=== PATIENT | female | born 1960 | race Asian ===

== ENCOUNTER → 2016-08-02 | Outpatient (CLI) | payer OTHER ==
[~2016-08-02] MED LIST: ALL300 PO; ALLO300T80 PO; ASCO1CAP3 PO; BENZ100C7 PO; CHLOTAB3 PO; CHN/1 PO; CHOL2000 PO; CLBCRM30 EXT; CLON1TAB3 PO; DENO60SO INJ; DOXE10CA PO; FAMO1TAB71 PO; FLAX1CAP11 PO; FURO-85 PO; LEVA45AE INH; LEVO-14 PO; LEVO-371 PO; MELATAB2 PO; MELO15TA10 PO; MENT4GEL EXT; MENT4GEL TD; META1TAB22 PO; MGCS/ OR; MISCCAP80 PO; MONT1TAB3 PO; NASONEX NAE; NRV/5 PO; OMEG10007 PO; OMEP40CA PO; ONDA4TAB46 PO; OPTIRAY 320 IV PRN; OXYC-57 PO; PRLSR20 PO; SILO8CAP PO; SYMIN/8045 INH; ULT50 PO; VALA1TAB31 PO; XOPENEX INH; ZOLP10TA PO
--- NOTE | 2016-08-02 16:02 | DIAGNOSTIC IMAGING REPORT ---
CHEST CT WITH CONTRAST CT DOSE: HISTORY: Breast carcinoma C49.A4 TECHNIQUE: Multiaxial CT images of the chest were performed following the intravenous administration of contrast. COMPARISON: None. FINDINGS: The lungs are clear. The mediastinal vascular structures are within normal limits. No mediastinal or hilar lymphadenopathy. No pleural effusion or pneumothorax. Limited views of the upper abdomen demonstrate a normal liver and spleen. IMPRESSION: No significant abnormality identified within the chest. Electronically signed by: Beni Hubbard M.D. 08/02/2016 4:01 PM Dictated Date/Time: 08/02/2016 3:58 PM
--- NOTE | 2016-08-02 16:07 | DIAGNOSTIC IMAGING REPORT ---
CT SCAN OF THE ABDOMEN AND PELVIS WITH IV CONTRAST CLINICAL HISTORY: Breast cancer. COMPARISON STUDY: Abdominal CT dated 07/07/2015. TECHNIQUE: Following the IV administration of 93 cc of Optiray 320, CT scan of the abdomen and pelvis is performed from the lung bases to the proximal femora. Images are reviewed in the axial, sagittal, and coronal planes. IV contrast was administered without complication. Automated dose control exposure was utilized. CT DOSE: 572.91 mGy.cm FINDINGS: Lung bases: The heart is normal in size and without pericardial effusion. Emphysema is noted at the lung bases. There is bibasilar scarring versus atelectasis. No airspace consolidation or pleural effusion is identified. A small fat-containing Bochdalek hernia is identified at the right lung base. Liver: The contrast-enhanced liver is normal in size, contour, and attenuation. Focal fatty infiltration is seen adjacent to the falciform ligament. There is no intrahepatic biliary ductal dilatation. The hepatic veins and portal veins are patent. Gallbladder: Unremarkable. Spleen: Normal in size and attenuation. Pancreas: Unremarkable. Adrenal glands: Unremarkable. Kidneys: The contrast enhanced kidneys demonstrate mild cortical atrophy and are without hydronephrosis. The kidneys enhance symmetrically. Abdominal vasculature: The abdominal aorta is normal in course and caliber noting moderate atherosclerotic calcification. Bowel: Postoperative change is identified in the mid to distal stomach. The duodenum is normal in configuration. There is no bowel obstruction. There is mild to moderate colonic fecal retention. The appendix is not identified and reported surgically absent. Peritoneum: There is no intraperitoneal free air or abdominal ascites. Lymphadenopathy: None. Pelvic viscera: The bladder is normal as visualized. The uterus is surgically absent. No adnexal lesion is seen. There is a small fat-containing left inguinal hernia. Skeletal structures: The skeletal structures are osteopenic. There is mild to moderate lumbosacral spondylosis. A bone island is again seen in the right ischium. No lytic or blastic lesions are seen. IMPRESSION: 1. There is no evidence of metastatic disease in the abdomen or pelvis. 2. No acute infectious or inflammatory findings are identified. 3. Emphysema. Electronically signed by: Otilio Larsen M.D. 08/02/2016 4:05 PM Dictated Date/Time: 08/02/2016 3:58 PM
[2016-08-02 16:39] LABS: BASO % 0.2 %; BASO ABS # 0.03 K/uL (0-0.2); COMPLETE YES; EOS % 0.4 %; HEMATOCRIT 41.2 % (37-47); IG% 0.3 %; LYMPH % 20.4 %; LYMPH ABS # 2.63 K/uL (1.2-3.4); MEAN CELL VOLUME 94.5 fL (80-100); MEAN CORPUSCULAR HEMOGLOBIN 32.1 pg (25-34); MEAN PLATELET VOLUME 9.8 fL (7.4-10.4); MONO % 4.3 %; NEUT % 74.4 %; PLATELET COUNT 252 K/uL (130-400); RED BLOOD COUNT 4.36 M/uL (4.2-5.4); WHITE BLOOD COUNT 12.87 K/uL (4.8-10.8)
--- NOTE | 2016-08-02 16:47 | DIAGNOSTIC IMAGING REPORT ---
CERVICAL SPINE 8 VIEWS HISTORY: Pain. Neuropathy. M54.2 COMPARISON: None. FINDINGS: The cervical spine is visualized from C1 through the superior endplate of T1. There is no fracture. No subluxation. Disc spaces are preserved. Prevertebral soft tissues and the atlantodens interval are intact. IMPRESSION: No fracture or subluxation within the cervical spine. Electronically signed by: Beni Hubbard M.D. 08/02/2016 4:46 PM Dictated Date/Time: 08/02/2016 4:45 PM
[2016-08-02 16:56] LABS: ALT/SGPT 26 U/L (12-78); BLOOD UREA NITROGEN 23 mg/dl (7-18); BUN/CREATININE RATIO 25.3 (10-20); CALCIUM 8.5 mg/dl (8.5-10.1); CARBON DIOXIDE 25 mmol/L (21-32); CHLORIDE 102 mmol/L (98-107); CHOLESTEROL 290 mg/dl (0-200); CREATININE 0.89 mg/dl (0.60-1.20); GLUCOSE 95 mg/dl (70-99); POTASSIUM 3.7 mmol/L (3.5-5.1); SODIUM 138 mmol/L (136-145)
[2016-08-02 17:07] LABS: ALB/GLOB RATIO 1.1 (0.9-2); ALKALINE PHOSPHATASE 75 U/L (45-117); AST/SGOT 13 U/L (15-37); HDL CHOLESTEROL 73 mg/dl; LDL CHOLESTEROL CALCULATED 193 mg/dl; TRIGLYCERIDES 122 mg/dl (0-150); VERY LOW DENSITY LIPOPROT CALC 24 mg/dl
[2016-08-02 17:52] LABS: URINE APPEARANCE CLEAR (CLEAR); URINE BILIRUBIN NEG (NEG); URINE COLOR YELLOW; URINE EPITHELIAL CELL AUTO 0-5 /lpf (0-5); URINE NITRITE NEG (NEG); URINE PH 7.5 (4.5-7.5); URINE SPECIFIC GRAVITY 1.038 (1.000-1.030); UROBILINOGEN NEG (NEG)
[2016-08-02 17:53] LABS: MANUAL MICROSCOPIC REQUIRED? NO; REVIEW REQ? NO
[2016-08-06 18:38] LABS: PNEUMOCOCCAL IGG TYPE 1 13.6 mcg/mL; PNEUMOCOCCAL IGG TYPE 12(12F 3.1 mcg/mL; PNEUMOCOCCAL IGG TYPE 14 3.3 mcg/mL; PNEUMOCOCCAL IGG TYPE 19(19F 2.7 mcg/mL; PNEUMOCOCCAL IGG TYPE 23(23F 0.8 mcg/mL; PNEUMOCOCCAL IGG TYPE 26 (6B 1.6 mcg/mL; PNEUMOCOCCAL IGG TYPE 4 0.6 mcg/mL; PNEUMOCOCCAL IGG TYPE 5 4.6 mcg/mL; PNEUMOCOCCAL IGG TYPE 51 (7F 2.6 mcg/mL; PNEUMOCOCCAL IGG TYPE 56(18C 2.6 mcg/mL; PNEUMOCOCCAL IGG TYPE 8 >41.0 mcg/mL; PNEUMOCOCCAL IGG TYPE 9 (9N) 2.7 mcg/mL
[2016-08-07 10:36] LABS: NORMETANEPHRINE PLASMA 72 pg/mL (<=148); TOTAL METANEPHRINE PLASMA 72 pg/mL (<=205)
== END | disposition home or self-care (01) ==
LOC: C.CTS 14:45
PROVIDERS: ATTEND Internal Medicine Medical Oncology
DX: C49.A4 Gastrointestinal stromal tumor of large intestine (principal); Z85.3 Personal history of malignant neoplasm of breast; J43.9 Emphysema, unspecified

== ENCOUNTER 2016-08-08 17:53 | Emergency (ER) | payer OTHER ==
[~2016-08-08] VITALS: Ht 157.5 cm; Wt 62.0 kg
[~2016-08-08 17:53] MED LIST changes: -ALLO300T80 PO; -CHLOTAB3 PO; -CLBCRM30 EXT; -DOXE10CA PO; -LEVA45AE INH; -LEVO-371 PO; -MENT4GEL TD; -MGCS/ OR; -NRV/5 PO; -OMEG10007 PO; -OPTIRAY 320 IV PRN; -PRLSR20 PO; -ULT50 PO; -VALA1TAB31 PO
[2016-08-08 17:59] VITALS: TEMP 37.1; Ht 157.5 cm; Wt 62.0 kg
[2016-08-08] MEDS ORDERED: OXYCODONE HCL IR 5 MG TAB (IMMEDIATE RELEASE) PO STA (18:20)
[2016-08-08 19:57] LABS: BASO % 0.1 %; BASO ABS # 0.02 K/uL (0-0.2); COMPLETE YES; EOS % 0.2 %; HEMATOCRIT 42.3 % (37-47); IG% 0.3 %; LYMPH % 14.3 %; LYMPH ABS # 2.05 K/uL (1.2-3.4); MEAN CORPUSCULAR HEMOGLOBIN 33.1 pg (25-34); MEAN CORPUSCULAR HGB CONC 35.2 g/dl (32-36); MEAN PLATELET VOLUME 10.2 fL (7.4-10.4); MONO % 5.1 %; PLATELET COUNT 259 K/uL (130-400); WHITE BLOOD COUNT 14.36 K/uL (4.8-10.8)
[2016-08-08 20:08] LABS: PARTIAL THROMBOPLASTIN RATIO 0.9; PROTHROMBIN TIME (PATIENT) 10.5 SECONDS (9.0-12.0)
--- NOTE | 2016-08-08 20:19 | DIAGNOSTIC IMAGING REPORT ---
TWO VIEW CHEST CLINICAL HISTORY: Cough and fever. FINDINGS: PA and lateral chest radiographs are compared to study dated 12/04/2015 and correlated with chest CT dated 08/02/16. The cardiomediastinal silhouette is unremarkable. Emphysema and chronic interstitial thickening are similar to previous. No airspace consolidation or pleural effusion is seen. Linear atelectasis is present at the right lung base. There is no pneumothorax. The skeletal structures are osteopenic. The bony thorax appears intact. IMPRESSION: Emphysema with no active disease in the chest. Electronically signed by: Otilio Larsen M.D. 08/08/2016 8:18 PM Dictated Date/Time: 08/08/2016 8:16 PM
[2016-08-08 20:20] LABS: BUN/CREATININE RATIO 18.9 (10-20); CALCIUM 9.6 mg/dl (8.5-10.1); CREATININE 0.88 mg/dl (0.60-1.20); POTASSIUM 3.4 mmol/L (3.5-5.1)
[2016-08-08 20:27] LABS: URINE APPEARANCE CLEAR (CLEAR); URINE BILIRUBIN NEG (NEG); URINE COLOR YELLOW; URINE NITRITE NEG (NEG); URINE PH 7.5 (4.5-7.5); UROBILINOGEN NEG (NEG)
[2016-08-08 20:28] LABS: MANUAL MICROSCOPIC REQUIRED? NO; REVIEW REQ? NO
[2016-08-08] MEDS ORDERED: NRV/5 PO (21:17)
[2016-08-08] MEDS ORDERED: ULT50 PO (21:25)
[2016-08-08] MEDS ORDERED: GADAVIST IV PRN (22:15)
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
--- NOTE | 2016-08-08 23:00 | DIAGNOSTIC IMAGING REPORT ---
MR LUMBAR SPINE COMBO CLINICAL HISTORY: Fever. Chronic back pain. Clinical concern for epidural abscess. COMPARISON STUDY: MRI of lumbar spine dated 01/19/2016. TECHNIQUE: MRI of lumbar spine is performed using various T1 and T2-weighted sequences in the axial and sagittal planes. Contrast-enhanced sequences were acquired following the IV administration of 6 cc of Gadavist. FINDINGS: Lumbar spine: Vertebral body height and alignment are maintained throughout the lumbar spine. Chronic degenerative change with minimal marrow edema is seen at L4-L5. Normal marrow signal intensity is preserved throughout the remaining bony structures. The transverse and spinous processes are grossly intact. There is no evidence of spondylolysis. Intervertebral discs: There is degenerative disc desiccation and loss of height seen throughout the lumbar spine. There is trace fluid seen at the L4-L5 disc. Spinal cord and central canal: The visual spinal cord is normal in morphology and signal intensity. The conus medullaris terminates at the level of L1. No abnormal enhancement is identified on the postcontrast images. The nerve roots of the cauda equina are normal in morphology. There is no evidence of epidural fluid collection. L1-L2: Unremarkable. L2-L3: Unremarkable. L3-L4: Minimal facet arthropathy of no consequence. There is minimal disc bulge with annular fissure. The central canal and neural foramina are patent. L4-L5: There is small disc herniation with annular fissure. In conjunction with hypertrophy of the ligament and flavum this causes moderate acquired compromise the central canal. The minimum AP canal diameter measures 5.5 mm. There is bilateral subarticular stenosis with possible impingement on the exiting left L4 nerve root. This also abuts the transiting bilateral sacral nerve roots. L5-S1: There is minimal disc bulge with annular fissure. The central canal is widely patent. Facet arthropathy is of no confluence. The neural foramina are patent. Sacrum: Visualized sacrum is normal in morphology and signal intensity. Soft tissues: The paraspinous soft tissues are within normal limits. The retroperitoneal structures are grossly unremarkable but incompletely assessed. IMPRESSION: 1. There is no MRI evidence of epidural abscess as clinically queried. 2. There is a small disc herniation at L4-L5. This causes moderate acquired compromise of the central canal and likely impinges on the exiting left L4 and transiting bilateral sacral nerve roots. 3. There is fluid noted within the L4-L5 disc. This is likely on a degenerative basis and there is no associated paravertebral edema at this level. Discitis is considered unlikely but would be impossible to completely exclude by imaging. Clinical correlation will be essential. 4. There is no evidence of osteomyelitis. Minimal degenerative endplate edema is seen at L4-L5. No bony destruction is identified. 5. Mild degenerative change at additional levels as above. See discussion for detailed level by level analysis. Electronically signed by: Otilio Larsen M.D. 08/08/2016 10:58 PM Dictated Date/Time: 08/08/2016 10:11 PM
--- NOTE | 2016-08-08 23:21 | EMERGENCY ROOM VISIT NOTE ---
ED Visit Note First contact with patient: 23:02 The patient is a 56-year-old female who presented to the emergency department back pain. The patient was seen initially by Dr. Sosa. I received this patient at change of shift signout. The patient had laboratory and radiographic studies obtained. She also complained of fever. She also complained of upper respiratory symptoms including sore throat but her flu swab in her rapid strep screen were negative. The patient had an MRI ordered because of the fever and the results were pending. I discussed the patient's laboratory and radiographic studies with her at length including her MRI report MR LUMBAR SPINE COMBO CLINICAL HISTORY: Fever. Chronic back pain. Clinical concern for epidural abscess. COMPARISON STUDY: MRI of lumbar spine dated 01/19/2016. TECHNIQUE: MRI of lumbar spine is performed using various T1 and T2-weighted sequences in the axial and sagittal planes. Contrast-enhanced sequences were acquired following the IV administration of 6 cc of Gadavist. FINDINGS: Lumbar spine: Vertebral body height and alignment are maintained throughout the lumbar spine. Chronic degenerative change with minimal marrow edema is seen at L4-L5. Normal marrow signal intensity is preserved throughout the remaining bony structures. The transverse and spinous processes are grossly intact. There is no evidence of spondylolysis. Intervertebral discs: There is degenerative disc desiccation and loss of height seen throughout the lumbar spine. There is trace fluid seen at the L4-L5 disc. Spinal cord and central canal: The visual spinal cord is normal in morphology and signal intensity. The conus medullaris terminates at the level of L1. No abnormal enhancement is identified on the postcontrast images. The nerve roots of the cauda equina are normal in morphology. There is no evidence of epidural fluid collection. L1-L2: Unremarkable. L2-L3: Unremarkable. L3-L4: Minimal facet arthropathy of no consequence. There is minimal disc bulge with annular fissure. The central canal and neural foramina are patent. L4-L5: There is small disc herniation with annular fissure. In conjunction with hypertrophy of the ligament and flavum this causes moderate acquired compromise the central canal. The minimum AP canal diameter measures 5.5 mm. There is bilateral subarticular stenosis with possible impingement on the exiting left L4 nerve root. This also abuts the transiting bilateral sacral nerve roots. L5-S1: There is minimal disc bulge with annular fissure. The central canal is widely patent. Facet arthropathy is of no confluence. The neural foramina are patent. Sacrum: Visualized sacrum is normal in morphology and signal intensity. Soft tissues: The paraspinous soft tissues are within normal limits. The retroperitoneal structures are grossly unremarkable but incompletely assessed. IMPRESSION: 1. There is no MRI evidence of epidural abscess as clinically queried. 2. There is a small disc herniation at L4-L5. This causes moderate acquired compromise of the central canal and likely impinges on the exiting left L4 and transiting bilateral sacral nerve roots. 3. There is fluid noted within the L4-L5 disc. This is likely on a degenerative basis and there is no associated paravertebral edema at this level. Discitis is considered unlikely but would be impossible to completely exclude by imaging. Clinical correlation will be essential. 4. There is no evidence of osteomyelitis. Minimal degenerative endplate edema is seen at L4-L5. No bony destruction is identified. 5. Mild degenerative change at additional levels as above. See discussion for detailed level by level analysis. Electronically signed by: Otilio Larsen M.D. 08/08/2016 10:58 PM Dictated Date/Time: 08/08/2016 10:11 PM She already has a specialist who manages her back pain as well as a primary care physician. She was encouraged to rest and avoid any strenuous activity. She was encouraged to continue all medications as prescribed including her Percocet that she has at home. She was also encouraged to follow-up with her back specialist as well as her primary home care associate as soon as possible return to the emergency department immediately if symptoms change worsen or the need arises.
[2016-08-08 23:29] VITALS: BP 193/136; PULSE 87; O2SAT 98
== END 2016-08-08 23:30 | disposition home or self-care (01) ==
LOC: C.EDB 17:54 → C.EDC 23:30
DX: R50.9 Fever, unspecified (principal); M54.5 Low back pain; J45.909 Unspecified asthma, uncomplicated; Z85.3 Personal history of malignant neoplasm of breast; G89.29 Other chronic pain; K76.9 Liver disease, unspecified; F32.9 Major depressive disorder, single episode, unspecified; J43.9 Emphysema, unspecified; K21.9 Gastro-esophageal reflux disease without esophagitis; M79.7 Fibromyalgia; I10 Essential (primary) hypertension; M51.36 Other intervertebral disc degeneration, lumbar region; G47.33 Obstructive sleep apnea (adult) (pediatric); M81.0 Age-related osteoporosis without current pathological fracture; M48.06 Spinal stenosis, lumbar region; Z80.9 Family history of malignant neoplasm, unspecified; Z83.6 Family history of other diseases of the respiratory system; Z82.49 Family history of ischemic heart disease and other diseases of the circulatory system; F17.210 Nicotine dependence, cigarettes, uncomplicated; Z79.899 Other long term (current) drug therapy

== ENCOUNTER → 2016-12-05 | Outpatient (CLI) | payer OTHER ==
[~2016-12-05] MED LIST changes: +ALLO300T80 PO; +ATROPINE SULFATE 0.1 MG/ML 5ML SYR ONE; +CHLOTAB3 PO; +CLBCRM30 EXT; +DOBUTamine HCL 12.5 MG/ML 20 ML VIAL ONE; +DOXE10CA PO; +LEVA45AE INH; +LEVO5TAB2 PO; +MENT4GEL TD; +METOPROLOL TARTRATE 1 MG/ML VIAL ONE; +MGCS/ OR; +NRV/5 PO; +OMEG10007 PO; +PRLSR20 PO; +ULT50 PO; +VALA1TAB31 PO
--- NOTE | 2016-12-05 10:56 | DOBUTAMINE ECHO ---
*NOTICE TO RECEIVING CONSTITUTION PARTY AGENCY This information is strictly Confidential and protected under [place] law. [place] law prohibits you from making any further disclosure of this information unless further disclosure is expressly permitted by the written consent of the person to whom it pertains or is authorized by law. A general authorization for the release of medical or other information is not sufficient for this purpose. Hospital accepts no responsibility if the information is made available to any other person, INCLUDING THE PATIENT. Interpretation Summary * Name: JAMEE THAKUR Study Date: 12/05/2016 08:15 AM BP: 160/90 mmHg * Patient Location: [facility] HR: 71 * : 1960 (M/d/yyyy) Gender: Female Height: 62 in * Age: 56 yrs Ethnicity: Weight: 137 lb * Ordering Physician: Ryan Santana * Referring Physician: Ryan Santana * Performed By: Silvia Castro RDCS * * Reason For Study: ABNORMAL EKG * BSA: 1.6 m2 * -- Conclusions -- * There is mild concentric left ventricular hypertrophy. * Left ventricular systolic function is normal. * Diastolic dysfunction, Grade II (pseudonormalization pattern). * There is mild mitral regurgitation. * Right ventricular systolic pressure is normal. * Diagnostic dobutamine echocardiogram without EKG or echocardiographic evidence of inducible ischemia Procedure Details * DOBUTAMINE ECHO, CPT#62506 Left Ventricular Findings with Stress * Normal augmentation during dobutamine infusion. No development of wall motion abnormalities, but there was cavity obliteration at peak heart rate which may reduce the sensitivity of the study. Patient reported "pounding" and mild nausea at peak dobutamine infusion. Left Ventricle * The left ventricle is normal in size. * There is mild concentric left ventricular hypertrophy. * Ejection Fraction = 60-65%. * Left ventricular systolic function is normal. * Diastolic dysfunction, Grade II (pseudonormalization pattern). * The left ventricular wall motion is normal. Right Ventricle * The right ventricle is normal in size and function. Atria * The left atrial size is normal. * Right atrial size is normal. Mitral Valve * The mitral valve anatomy is normal. * There is mild mitral regurgitation. Tricuspid Valve * The tricuspid valve is not well visualized, but is grossly normal. * There is mild tricuspid regurgitation. * Right ventricular systolic pressure is normal. Aortic Valve * The aortic valve is normal in structure and function. * The aortic valve is trileaflet. * No hemodynamically significant valvular aortic stenosis. * There is no significant aortic regurgitation. Great Vessels * The aortic root is normal size. Pericardium * There is no pericardial effusion. Stress Parameters * Normal baseline electrocardiogram. * Stress ECG: No ST changes. No arrhythmias. * The stress portion of this study was personally supervised by the undersigned interpreting physician. * Rest heart rate was '71' BPM. * Rest blood pressure was '160/90' * Maximum heart rate achieved was 141 bpm. * Maximum heart rate was 87 % of maximum age-predicted heart rate. * Maximum blood pressure was '160/90' * Maximum Dobutamine infusion rate was '50' mcg/kg/min. * A total of .25 mg of intravenous Atropine was used to supplement Dobutamine for heart rate response. * Dobutamine infusion was terminated due to achieving target heart rate * A total of 2.5 mg of IV Metoprolol was administered to reverse Dobutamine-induced tachycardia. Left Ventricular Findings with Stress * Diagnostic dobutamine echocardiogram without EKG or echocardiographic evidence of inducible ischemia MMode 2D Measurements and Calculations IVSd 1.4 cm IVSs 1.7 cm LVIDd 3.9 cm LVIDs 2.5 cm LVPWd 1.3 cm LVPWs 1.9 cm IVS/LVPW 1.1 FS 34.7 % EDV(Teich) 65.7 ml ESV(Teich) 23.3 ml EF(Teich) 64.5 % EDV(cubed) 59.1 ml ESV(cubed) 16.5 ml EF(cubed) 72.1 % % IVS thick 19.3 % % LVPW thick 46.0 % LV mass(C)d 188.2 grams LV mass(C)dI 115.6 grams/m\\S\\2 LV mass(C)s 174.2 grams LV mass(C)sI 107.0 grams/m\\S\\2 CO(Teich) 3.0 l/min CI(Teich) 1.8 l/min/m\\S\\2 SV(Teich) 42.4 ml SI(Teich) 26.0 ml/m\\S\\2 CO(cubed) 3.0 l/min CI(cubed) 1.9 l/min/m\\S\\2 SV(cubed) 42.6 ml SI(cubed) 26.2 ml/m\\S\\2 Ao root diam 3.3 cm Ao root area 8.4 cm\\S\\2 LA dimension 3.5 cm LA/Ao 1.1 LVAd ap4 23.0 cm\\S\\2 LVLd ap4 7.7 cm EDV(MOD-sp4) 57.6 ml LVAs ap4 12.1 cm\\S\\2 LVLs ap4 6.2 cm ESV(MOD-sp4) 20.0 ml EF(MOD-sp4) 65.3 % LVAd ap2 20.9 cm\\S\\2 LVLd ap2 7.7 cm EDV(MOD-sp2) 47.1 ml LVAs ap2 10.4 cm\\S\\2 LVLs ap2 5.8 cm ESV(MOD-sp2) 16.1 ml EF(MOD-sp2) 65.8 % CO(MOD-sp4) 2.7 l/min CI(MOD-sp4) 1.6 l/min/m\\S\\2 SV(MOD-sp4) 37.6 ml SI(MOD-sp4) 23.1 ml/m\\S\\2 CO(MOD-sp2) 2.2 l/min CI(MOD-sp2) 1.4 l/min/m\\S\\2 SV(MOD-sp2) 31.0 ml SI(MOD-sp2) 19.0 ml/m\\S\\2 Doppler Measurements and Calculations MV E max ulysses 69.9 cm/sec MV A max ulysses 56.6 cm/sec MV E/A 1.2 MV dec time 0.24 sec Ao V2 max 124.9 cm/sec Ao max PG 6.2 mmHg Ao max PG (full) 1.1 mmHg LV V1 max PG 5.1 mmHg LV V1 max 113.1 cm/sec TR max ulysses 203.8 cm/sec
== END | disposition home or self-care (01) ==
LOC: C.CPL 08:03
PROVIDERS: ATTEND Family Medicine
DX: R94.31 Abnormal electrocardiogram [ECG] [EKG] (principal); Z01.818 Encounter for other preprocedural examination

== ENCOUNTER → 2016-12-09 | Outpatient (CLI) | payer OTHER ==
[~2016-12-09] MED LIST changes: -ATROPINE SULFATE 0.1 MG/ML 5ML SYR ONE; -DOBUTamine HCL 12.5 MG/ML 20 ML VIAL ONE; -METOPROLOL TARTRATE 1 MG/ML VIAL ONE
--- NOTE | 2016-12-09 13:09 | DIAGNOSTIC IMAGING REPORT ---
CHEST 2 VIEWS ROUTINE HISTORY: FEVER COMPARISON: Chest 08/08/2016. FINDINGS: Stable linear scarlike densities within the right lung base. No new focal lung consolidations to suggest pneumonia. No pleural effusions. No pneumothorax. The heart is stable in size. IMPRESSION: Stable linear scarlike densities within the right lung base. No new focal lung consolidations to suggest pneumonia. Electronically signed by: Maxx Silva M.D. 12/09/2016 1:07 PM Dictated Date/Time: 12/09/2016 1:05 PM
[2016-12-09 13:38] LABS: BASO % 0.1 %; BASO ABS # 0.02 K/uL (0-0.2); COMPLETE YES; HEMATOCRIT 43.6 % (37-47); IG% 0.4 %; LYMPH % 6.4 %; LYMPH ABS # 1.34 K/uL (1.2-3.4); MEAN CELL VOLUME 92.6 fL (80-100); MEAN CORPUSCULAR HEMOGLOBIN 31.4 pg (25-34); MEAN CORPUSCULAR HGB CONC 33.9 g/dl (32-36); MEAN PLATELET VOLUME 10.9 fL (7.4-10.4); NEUT % 90.1 %; PLATELET COUNT 216 K/uL (130-400); RED BLOOD COUNT 4.71 M/uL (4.2-5.4); WHITE BLOOD COUNT 20.98 K/uL (4.8-10.8)
[2016-12-09 15:12] LABS: URINE APPEARANCE CLEAR (CLEAR); URINE BILIRUBIN NEG (NEG); URINE COLOR YELLOW; URINE EPITHELIAL CELL AUTO >30 /lpf (0-5); URINE NITRITE NEG (NEG); URINE SPECIFIC GRAVITY 1.012 (1.000-1.030); UROBILINOGEN NEG (NEG)
[2016-12-09 15:23] LABS: MANUAL MICROSCOPIC REQUIRED? NO; REVIEW REQ? NO
[2016-12-09 17:35] LABS: LYME DISEASE AB IGG NEG (NEG); LYME DISEASE AB IGM NEG (NEG)
== END ==
LOC: C.RAD 11:49
PROVIDERS: ATTEND Family Medicine
DX: R50.9 Fever, unspecified (principal); L03.90 Cellulitis, unspecified; M79.603 Pain in arm, unspecified

== ENCOUNTER 2017-01-11 18:53 | Emergency (ER) | payer OTHER ==
[~2017-01-11] VITALS: Ht 157.5 cm; Wt 63.3 kg
[~2017-01-11 18:53] MED LIST changes: -ALLO300T80 PO; -CHLOTAB3 PO; -CLBCRM30 EXT; -DOXE10CA PO; -LEVA45AE INH; -LEVO5TAB2 PO; -MENT4GEL TD; -MGCS/ OR; -OMEG10007 PO; -PRLSR20 PO; -VALA1TAB31 PO
[2017-01-11 18:58] VITALS: TEMP 37; Ht 157.5 cm; Wt 63.3 kg
[2017-01-11] MEDS ORDERED: MAGIC SWIZZLE PO ONE (19:30)
[2017-01-11] MEDS ORDERED: LIDOCAINE HCL 2% VISCOUS SOLN 1.25 ML, DiphenhydrAMINE HCL SYRUP 3.125 MG, ALUMINUM/MAG... MT ONE ×4 (19:30)
[2017-01-11] MEDS ORDERED: ALLO300T80 PO (19:37)
[2017-01-11] MEDS ORDERED: MENT4GEL TD (19:39)
[2017-01-11] MEDS ORDERED: CLBCRM30 EXT (19:42)
--- NOTE | 2017-01-11 19:46 | DIAGNOSTIC IMAGING REPORT ---
CHEST 2 VIEWS ROUTINE CLINICAL HISTORY: cough dyspnea COMPARISON STUDY: 12/09/2016 FINDINGS: The bones soft tissues and hemidiaphragms are normal. The cardiomediastinal silhouette is normal. The lungs are clear. The pulmonary vasculature is normal. IMPRESSION: Negative chest. The above report was generated using voice recognition software. It may contain grammatical, syntax or spelling errors. Electronically signed by: Beni Hubbard M.D. 01/11/2017 7:45 PM Dictated Date/Time: 01/11/2017 7:45 PM
[2017-01-11] MEDS ORDERED: PRLSR20 PO (19:49)
[2017-01-11] MEDS ORDERED: OMEG10007 PO (19:50)
[2017-01-11] MEDS ORDERED: CHLOTAB3 PO (20:01)
[2017-01-11] MEDS ORDERED: LEVA45AE INH (20:06)
[2017-01-11] MEDS ORDERED: LEVO-371 PO (20:08)
[2017-01-11] MEDS ORDERED: DOXE10CA PO (20:12)
[2017-01-11] MEDS ORDERED: VALA1TAB31 PO (20:13)
[2017-01-11 20:15] LABS: URINE APPEARANCE CLEAR (CLEAR); URINE BILIRUBIN NEG (NEG); URINE COLOR YELLOW; URINE NITRITE NEG (NEG); URINE PH 6.5 (4.5-7.5); URINE SPECIFIC GRAVITY 1.007 (1.000-1.030); UROBILINOGEN NEG (NEG)
[2017-01-11 20:22] LABS: MANUAL MICROSCOPIC REQUIRED? NO; REVIEW REQ? NO
[2017-01-11 20:36] LABS: BASO % 0.5 %; BASO ABS # 0.04 K/uL (0-0.2); COMPLETE YES; EOS % 2.2 %; HEMATOCRIT 46.1 % (37-47); IG% 0.3 %; LYMPH % 38.8 %; LYMPH ABS # 3.02 K/uL (1.2-3.4); MEAN CORPUSCULAR HEMOGLOBIN 32.3 pg (25-34); MEAN CORPUSCULAR HGB CONC 35.1 g/dl (32-36); MEAN PLATELET VOLUME 10.6 fL (7.4-10.4); MONO % 6.8 %; NEUT % 51.4 %; PLATELET COUNT 271 K/uL (130-400); RED BLOOD COUNT 5.01 M/uL (4.2-5.4); WHITE BLOOD COUNT 7.78 K/uL (4.8-10.8)
[2017-01-11 20:40] LABS: BENZODIAZEPINE, URINE NEG (NEG); COCAINE,URINE NEG (NEG); PHENCYCLIDINE, URINE NEG (NEG)
[2017-01-11 20:57] LABS: ALKALINE PHOSPHATASE 141 U/L (45-117); ALT/SGPT 30 U/L (12-78); BLOOD UREA NITROGEN 23 mg/dl (7-18); BUN/CREATININE RATIO 22.6 (10-20); CALCIUM 9.5 mg/dl (8.5-10.1); CHLORIDE 106 mmol/L (98-107)
[2017-01-11 20:58] LABS: CARBON DIOXIDE 27 mmol/L (21-32); GLUCOSE 93 mg/dl (70-99)
[2017-01-11 21:07] VITALS: BP 121/71; PULSE 80; O2SAT 96
[2017-01-11] MEDS ORDERED: MGCS/ OR (21:11)
[2017-01-11 21:15] LABS: AST/SGOT 17 U/L (15-37); POTASSIUM 4.2 mmol/L (3.5-5.1); SODIUM 142 mmol/L (136-145)
--- NOTE | 2017-01-12 00:30 | EMERGENCY ROOM VISIT NOTE ---
History Report prepared by Shane: Yaneth Kirk Under the Supervision of: Dr. Andrea Blair D.O. First contact with patient: 19:03 Chief Complaint: SORETHROAT Stated Complaint: VERY BAD SORE THROAT, FOGGY HEAD, COUGHING History of Present Illness The patient is a 56 year old female who presents to the Emergency Room with complaints of a persistent sorethroat that started yesterday. She rates her discomfort as an 8/10 in severity. She states her pain is so bad she cannot swallow anything. Percocet and a salt water swizzle have provided very minimal relief. The last time she ate was this morning. She reports last night her pain worsened, so she called her primary care physician's office and states the nurses told her to come to the ED for evaluation. The patient also complains of a minimally productive cough, dizziness and "a very small amount of shortness of breath". She admits to a history of asthma and states she only feels short of breath when she tries to take a deep breath or eat or drink because the pain in her throat is so severe it causes shortness of breath. She states "I was very dizzy yesterday. I couldn't get out of bed... I was sleeping for 2 days consecutively". The patient denies headache, change in vision, fevers, chest pain, nausea, vomiting, diarrhea, pain with urination, and melena. Source of History: patient Onset: yesterday Position: throat Symptom Intensity: 8/10 Timing: other (persistent) Modifying Factors (Worsening): eating, drinking Modifying Factors (Relieving): narcotics (Percocet), other (salt water swizzle) Associated Symptoms: + cough, + SOB, + fatigue, + weakness, No fevers, No headache, No chest pain, No nausea, No vomiting, No melena, No diarrhea, No urinary symptoms Review of Systems See HPI for pertinent positives & negatives. A total of 10 systems reviewed and were otherwise negative. 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 (16) MAL NIRMALA SOFT TIS ABDOMEN (17) NERV ROOT/PLEXUS DIS NEC (18) OBSTRUCTIVE SLEEP APNEA (ADULT) (PEDIATRIC) (19) OSTEOARTHRO NOS-OTH SITE (20) OSTEOPOROSIS NOS (21) RADIOTHERAPY FOLLOW-UP (22) SPINAL STENOSIS, LUMBAR REG, W/OUT NEUROGENIC CLAUDICATION Family History Diabetes mellitus FH: cancer FH: emphysema FH: heart disease Hypertension Kidney disease Kidney stones Social History Smoking Status: Never Smoker Alcohol Use: none Drug Use: none Marital Status: Housing Status: lives with family Occupation Status: unemployed Current/Historical Medications Scheduled Allopurinol (Zyloprim), 300 MG PO DAILY Ascorbic Acid (Vitamin C), 500 MG PO QAM Chlorzoxazone (Parafon Forte Dsc), 500 MG PO TID Cholecalciferol (Vitamin D3), 2,000 UNITS PO QAM Clobetasol Propionate (Clobetasol Propionate Cream 0.05%), 1 APPLN EXT DAILY Clonazepam (Klonopin), 1.5 MG PO HS Denosumab (Prolia), 1 DOSE INJ [id number] Doxepin (Sinequan), 20 MG PO DAILY Famotidine (Pepcid), 20 MG PO BID Flaxseed (Linseed) (Flax Seed Oil), 1 CAP PO QAM Furosemide (Lasix), 0.5 TAB PO DAILY Levalbuterol Tartrate (Levalbuterol Tartrate Hfa), 2 PUFFS INH QID Levocetirizine Dihydrochloride (Xyzal), 5 MG PO DAILY Maalox/Diphen/Visc. Yahir/Glyc (Magic Swizzle), 5 ML OR TID Melatonin (Melatonin Maximum Strengt), 5-10 MG PO HS Meloxicam (Mobic), 15 MG PO QPM Montelukast Sodium (Singulair), 10 MG PO HS Omeprazole (Prilosec), 20 MG PO BID Probiotic Product (Probiotic), 1 CAP PO TID Silodosin (Rapaflo), 8 MG PO QPM Varenicline (Chantix), 1 MG PO BID [Nasonex], 1-2 SPRAY KEELEY DAILY Scheduled PRN Benzonatate (Benzonatate), 100 MG PO DIRECTED PRN for Cough Menthol (Topical Analgesic) (Biofreeze), 1 APPLN TD BID PRN for Pain Ondansetron Hcl (Zofran), 4 MG PO Q4H PRN for Nausea Oxycodone/Acetaminophen 5MG/325MG (Percocet 5MG/325MG), 1-2 TABLETS PO Q4H PRN for Pain Tramadol HCl (Tramadol HCl), 50 MG PO TID PRN for Pain Valacyclovir Hcl (Valtrex), 1 GM PO DAILY PRN for FLARES Allergies Coded Allergies: Dantrolene (Verified Allergy, Severe, SHORT BREATH, VOMITING, 08/08/16) Ranitidine (Verified Allergy, Severe, nausea, sob, 08/08/16) Camphor (Verified Allergy, Intermediate, RASH, 08/08/16) Menthol (Verified Allergy, Intermediate, RASH, 08/08/16) Metronidazole (Verified Allergy, Intermediate, GI SYMPTOMS, 08/08/16) patien states " I can take IV Flagyl " Phenol (Verified Allergy, Intermediate, RASH, 08/08/16) Etodolac (Verified Allergy, Mild, ?, 08/08/16) Formoterol (Verified Allergy, Mild, THRUSH, RASH, 08/08/16) Thrush and Rash Indomethacin (Verified Allergy, Mild, RASH, 08/08/16) Metoclopramide (Verified Allergy, Mild, ?, 08/08/16) Mometasone (Verified Allergy, Mild, THRUSH, RASH, 08/08/16) Thrush and Rash Morphine (Verified Allergy, Mild, `, 08/08/16) Nortriptyline (Verified Allergy, Mild, ?, 08/08/16) Tamoxifen (Verified Allergy, Mild, ?, 08/08/16) Acellular Pertussis (Verified Allergy, Unknown, `, 08/08/16) Albuterol (Verified Allergy, Unknown, `, 08/08/16) Aluminum Phosphate (Verified Allergy, Unknown, `, 08/08/16) Anastrozole (Verified Allergy, Unknown, ?, 08/08/16) Baclofen (Verified Allergy, Unknown, unknown, 08/08/16) Carisoprodol (Verified Allergy, Unknown, `, 08/08/16) Celecoxib (Verified Allergy, Unknown, unknown, 08/08/16) Cephalexin (Verified Allergy, Unknown, unknown, 08/08/16) Cephalosporins (Verified Allergy, Unknown, ?, 08/08/16) Clarithromycin (Verified Allergy, Unknown, ?, 08/08/16) Cyclobenzaprine (Verified Allergy, Unknown, `, 08/08/16) Desipramine (Verified Allergy, Unknown, `, 08/08/16) Diphtheria Toxoid (Verified Allergy, Unknown, `, 08/08/16) Doxycycline (Verified Allergy, Unknown, unknown, 08/08/16) Gabapentin (Verified Allergy, Unknown, unknown, 08/08/16) Guaifenesin (Verified Allergy, Unknown, `, 08/08/16) Hydrocodone (Verified Allergy, Unknown, ?, 08/08/16) Letrozole (Verified Allergy, Unknown, `, 08/08/16) Methocarbamol (Verified Allergy, Unknown, ?, 08/08/16) Mirtazapine (Verified Allergy, Unknown, unknown, 08/08/16) Naproxen (Verified Allergy, Unknown, `, 08/08/16) Penicillins (Verified Allergy, Unknown, UNKNOWN, 08/08/16) Phenoxyethanol (Verified Allergy, Unknown, `, 08/08/16) Phenylpropanolamine (Verified Allergy, Unknown, `, 08/08/16) Pseudoephedrine (Verified Allergy, Unknown, ?, 08/08/16) Quetiapine (Verified Allergy, Unknown, unknown, 08/08/16) Sulfa Antibiotics (Verified Allergy, Unknown, `, 08/08/16) Sulfamethoxazole w/Trimethoprim (Verified Allergy, Unknown, unknown, ) Sympathomimetics (Verified Allergy, Unknown, `, 08/08/16) Terazosin (Verified Allergy, Unknown, `, 08/08/16) Tetanus Toxoid (Verified Allergy, Unknown, `, 08/08/16) Trazodone (Verified Allergy, Unknown, `, 08/08/16) Triamterene (Verified Allergy, Unknown, ?, 08/08/16) Vilazodone (Verified Allergy, Unknown, `, 08/08/16) Yellow Dye (Verified Allergy, Unknown, UNSURE, 08/08/16) Temazepam (Verified Adverse Reaction, Severe, STRANGE DREAMS, 08/08/16) Hydrochlorothiazide (Verified Adverse Reaction, Intermediate, GOUT, 08/08/16 ) Hydrochlorothiazide w/Triamterene (Verified Adverse Reaction, Intermediate , GOUT, 08/08/16) Levomilnacipran (Verified Adverse Reaction, Intermediate, CONFUSION, ) Confused Ascorbate (Verified Adverse Reaction, Mild, DIARRHEA, 08/08/16) diarrhea Biotin (Verified Adverse Reaction, Mild, DIARRHEA, 08/08/16) Calcium (Verified Adverse Reaction, Mild, DIARRHEA, 08/08/16) diarrhea Copper (Verified Adverse Reaction, Mild, DIARRHEA, 08/08/16) diarrhea Folic Acid (Verified Adverse Reaction, Mild, DIARRHEA, 08/08/16) Diarrhea Iron (Verified Adverse Reaction, Mild, DIARRHEA, 08/08/16) diarrhea Niacinamide (Verified Adverse Reaction, Mild, DIARRHEA, 08/08/16) diarrhea Pantothenic Acid (Verified Adverse Reaction, Mild, DIARRHEA, 08/08/16) Pregabalin (Verified Adverse Reaction, Mild, DIARRHEA, 08/08/16) Diarrhea Pyridoxine (Verified Adverse Reaction, Mild, DIARRHEA, 08/08/16) diarrhea Riboflavin (Verified Adverse Reaction, Mild, DIARRHEA, 08/08/16) diarrhea Thiamine (Verified Adverse Reaction, Mild, DIARRHEA, 08/08/16) diarrhea Toremifene (Verified Adverse Reaction, Mild, COLD SORE, VAGINAL DISCHARGE , 08/08/16) Cold Sore and Vaginal Discharge Vitamin A (Verified Adverse Reaction, Mild, DIARRHEA, 08/08/16) diarrhea Vitamin B12 (Verified Adverse Reaction, Mild, DIARRHEA, 08/08/16) diarrhea Vitamin D (Verified Adverse Reaction, Mild, DIARRHEA, 08/08/16) diarrhea Vitamin E (Verified Adverse Reaction, Mild, DIARRHEA, 08/08/16) diarrhea Zinc (Verified Adverse Reaction, Mild, DIARRHEA, 08/08/16) diarrhea Tizanidine (Verified Adverse Reaction, Unknown, RINGING,BLACKOUT, 08/08/16) Physical Exam Vital Signs Date Time Temp Pulse Resp B/P (MAP) Pulse Ox O2 Delivery O2 Flow Rate FiO2 01/11/17 21:07 80 16 121/71 96 Room Air 01/11/17 18:58 37.0 92 16 193/135 93 Room Air Physical Exam GENERAL: Patient is sitting up in bed, alert, well appearing, well nourished, no distress, non-toxic EYE EXAM: normal conjunctiva, PERRL and EOM's intact EARS: TM's clear bilaterally OROPHARYNX: no exudate, mild erythema in posterior pharyngeal folds/posterior oropharynx, lips, buccal mucosa, and tongue normal and mucous membranes are moist NECK: supple, no nuchal rigidity, no adenopathy, non-tender LUNGS: Clear to auscultation. Normal chest wall mechanics HEART: no murmurs, S1 normal and S2 normal ABDOMEN: abdomen soft, non-tender, normo-active bowel sounds, no masses, no rebound or guarding. BACK: Back is symmetrical on inspection and there is no deformity, no midline tenderness, no CVA tenderness. SKIN: no rashes and no bruising UPPER EXTREMITIES: upper extremities are grossly normal. LOWER EXTREMITIES: No pitting edema. NEURO EXAM: Normal sensorium, cranial nerves II-XII intact, normal speech, no weakness of arms, no weakness of legs. No drift. Finger to nose intact. Gross sensation intact. PSYCH: admits to thoughts of harm yesterday but has not had any today. Currently denies SI/HI along with auditory/visual hallucinations Medical Decision & Procedures ER Provider Diagnostic Interpretation: Radiology results as stated below per my review and the radiologist's interpretation: CHEST 2 VIEWS ROUTINE CLINICAL HISTORY: cough dyspnea COMPARISON STUDY: 12/09/2016 FINDINGS: The bones soft tissues and hemidiaphragms are normal. The cardiomediastinal silhouette is normal. The lungs are clear. The pulmonary vasculature is normal. IMPRESSION: Negative chest. The above report was generated using voice recognition software. It may contain grammatical, syntax or spelling errors. Electronically signed by: Beni Hubbard M.D. 01/11/2017 7:45 PM Laboratory Results 01/11/17 20:08 Red Blood Count 5.01, Mean Corpuscular Volume 92.0, Mean Corpuscular Hemoglobin 32.3, Mean Corpuscular Hemoglobin Concent 35.1, Mean Platelet Volume 10.6, Neutrophils (%) (Auto) 51.4, Lymphocytes (%) (Auto) 38.8, Monocytes (%) (Auto) 6.8, Eosinophils (%) (Auto) 2.2, Basophils (%) (Auto) 0.5, Neutrophils # (Auto) 4.00, Lymphocytes # (Auto) 3.02, Monocytes # (Auto) 0.53, Eosinophils # (Auto) 0.17, Basophils # (Auto) 0.04 01/11/17 20:08 Test 01/11/17 19:55 01/11/17 20:08 Urine Color YELLOW Urine Appearance CLEAR (CLEAR) Urine pH 6.5 (4.5-7.5) Urine Specific [place] 1.007 (1.000-1.030) Urine Protein NEG (NEG) Urine Glucose (UA) NEG (NEG) Urine Ketones NEG (NEG) Urine Occult Blood NEG (NEG) Urine Nitrite NEG (NEG) Urine Bilirubin NEG (NEG) Urine Urobilinogen NEG (NEG) Urine Leukocyte Esterase NEG (NEG) Bedside Glucose 93 mg/dl (70-90) Urine Opiates Screen NEG (NEG) Urine Methadone, Qualitative NEG (NEG) Urine Barbiturates NEG (NEG) Urine Phencyclidine (PCP) Level NEG (NEG) Ur Amphetamine/Methamphetamine NEG (NEG) MDMA (Ecstasy) Screen NEG (NEG) Urine Benzodiazepines Screen NEG (NEG) Urine Cocaine Metabolite NEG (NEG) Urine Marijuana (THC) NEG (NEG) White Blood Count 7.78 K/uL (4.8-10.8) Red Blood Count 5.01 M/uL (4.2-5.4) Hemoglobin 16.2 g/dL (12.0-16.0) Hematocrit 46.1 % (37-47) Mean Corpuscular Volume 92.0 fL (80-100) Mean Corpuscular Hemoglobin 32.3 pg (25-34) Mean Corpuscular Hemoglobin Concent 35.1 g/dl (32-36) Platelet Count 271 K/uL (130-400) Mean Platelet Volume 10.6 fL (7.4-10.4) Neutrophils (%) (Auto) 51.4 % Lymphocytes (%) (Auto) 38.8 % Monocytes (%) (Auto) 6.8 % Eosinophils (%) (Auto) 2.2 % Basophils (%) (Auto) 0.5 % Neutrophils # (Auto) 4.00 K/uL (1.4-6.5) Lymphocytes # (Auto) 3.02 K/uL (1.2-3.4) Monocytes # (Auto) 0.53 K/uL (0.11-0.59) Eosinophils # (Auto) 0.17 K/uL (0-0.5) Basophils # (Auto) 0.04 K/uL (0-0.2) RDW Standard Deviation 45.7 fL (36.4-46.3) RDW Coefficient of Variation 13.6 % (11.5-14.5) Immature Granulocyte % (Auto) 0.3 % Immature Granulocyte # (Auto) 0.02 K/uL (0.00-0.02) Anion Gap 7.0 mmol/L (3-11) Est Creatinine Clear Calc Drug Dose 53.6 ml/min Estimated GFR () 71.9 Estimated GFR (Non- 62.1 BUN/Creatinine Ratio 22.6 (10-20) Calcium Level 9.5 mg/dl (8.5-10.1) Total Bilirubin 0.5 mg/dl (0.2-1) Direct Bilirubin < 0.1 mg/dl (0-0.2) Aspartate Amino Transf (AST/SGOT) 17 U/L (15-37) Alanine Aminotransferase (ALT/SGPT) 30 U/L (12-78) Alkaline Phosphatase 141 U/L (45-117) Total Protein 7.8 gm/dl (6.4-8.2) Albumin 3.8 gm/dl (3.4-5.0) Ethyl Alcohol mg/dL < 3.0 mg/dl (0-3) Laboratory results per my review. Medications Administered Medications (Trade) Dose Ordered Sig/Tea Route Start Time Stop Time Status Last Admin Dose Admin Lidocaine HCl/ Diphenhydramine HCl/Al Hydroxide/ Mg Hydroxide/ Glycerin/Barcode NOW ONCE MT 01/11/17 19:30 01/11/17 19:31 DC 01/11/17 19:30 5 ML ED Course ED COURSE: Vital signs were reviewed and showed the patient is hypertensive. The patients medical record was reviewed The above diagnostic studies were performed and reviewed. ED treatments and interventions as stated above. 1907: The patient was evaluated in room B2. A complete history and physical examination was performed. 1914: Nursing Staff informed me the patient told her triage nurse that she felt unsafe at home. She was evaluated by our industrial truck mechanic. 1929: Lidocaine HCl/Diphenyhdramine HCl/Al Hydroxide/Mg Hydroxide/Glycerin MT. 1942: I reevaluated the patient. She admits to thoughts of self harm yesterday, and states today she feels very depressed. She denies any auditory or visual hallucinations. 2104: I discussed the patients case with rickie Reddy Bill, the [facility] Psychiatric Care Floor. She notes the patient does not meet patient criteria and can be released home. 2133: I reevaluated the patient. She is feeling better. The magic swizzle helped out extensively. I discussed my findings with the patient and she understands and agrees with the treatment plan. Based on the patients age, coexisting illnesses, exam and lab findings the decision to treat as an outpatient was made. The patient remained stable while under my care. The patient appeared well at the time of discharge. Medical Decision Medication Reconciliation: I attest that I have personally reviewed the patient' s current medication list. Blood pressure screening: Patient was found to have normal blood pressure on screening and does not require follow-up. Differential diagnosis includes etiologies such as viral syndrome, tonsillitis, streptococcal pharyngitis, mononucleosis, peritonsillar abscess, retropharyngeal abscess, otitis, pneumonia, influenza, as well as others were entertained. Patient is a 48-year-old female who presents the ER for sore throat which started this a.m. associated with the all productive sputum. She denies any fevers. She admits to shortness of breath when the pain becomes severe. Patient is tolerating secretions. She is otherwise well-appearing. No peritonsillar abscess. No signs of retropharyngeal abscess. No Mars's angina. Patient noted that she did not feel safe at home and was eventually evaluated by our clinical care coordinator and psychiatry which included Roopa and Benjamin. Both of which agreed that the patient did not meet inpatient anterior. Upon my reevaluation she gets denies any current suicidal or homicidal ideations. She will call the police and she was unsafe at home. Patient was discharged with a pharyngitis, negative rapid strep, unremarkable chest x-ray to follow with PCP. Symptoms were significantly improved with magic swizzle. Discussed with Pt concerning signs and symptoms to watch out for. Pt was instructed to follow up with their PCP and discussed with the patient their option to return to the ED at anytime for persistent or worsening symptoms. The appropriate anticipatory guidance and out-patient management, including indications for return to the emergency department, were explained at length to the patient and understood. Consults Time Called: 2099 Consulting Physician: Rehana Reddy, [facility]'s Psychiatric Care Floor Returned Call: 2104 I discussed the patients case with melania Reddy, the [facility] Psychiatric Care Floor. She notes the patient does not meet patient criteria and can be released home. Impression Primary Impression: Pharyngitis Additional Impression: Depression Scribe Attestation The scribe's documentation has been prepared under my direction and personally reviewed by me in its entirety. I confirm that the note above accurately reflects all work, treatment, procedures, and medical decision making performed by me. Departure Information Dispostion Home / Self-Care Prescriptions Maalox/Diphen/Visc. Yahir/Glyc (Magic Swizzle) 240 Ml Btl 5 ML OR TID for 5 Days Prov: Andrea Blair, DO 01/11/17 Referrals Ryan Santana M.D. (PCP) Patient Instructions ED Pharyngitis Viral, My [facility] Additional Instructions Please follow up with your primary care doctor with in the next 24 hours. Any worsening of your symptoms, please return to the ED immediately. This includes fevers greater than 100.4, inability to swallow, chest pain, shortness of breath , passing out, or any other concerning signs or symptoms from your standpoint. Problem Qualifiers Primary Impression: Pharyngitis Pharyngitis/tonsillitis etiology: unspecified etiology Qualified Codes: J02.9 - Acute pharyngitis, unspecified Additional Impression: Depression Trimester: unspecified trimester
== END 2017-01-11 21:39 | disposition home or self-care (01) ==
LOC: C.EDB 18:54
DX: J02.9 Acute pharyngitis, unspecified (principal); R05 Cough; F32.9 Major depressive disorder, single episode, unspecified; Z85.3 Personal history of malignant neoplasm of breast; I10 Essential (primary) hypertension; G47.33 Obstructive sleep apnea (adult) (pediatric); Z79.899 Other long term (current) drug therapy; R06.00 Dyspnea, unspecified

== ENCOUNTER → 2017-03-19 | Outpatient (CLI) | payer OTHER ==
[~2017-03-19] MED LIST changes: -ALL300 PO; +ALLO300T80 PO; +CHLOTAB3 PO; +CLBCRM30 EXT; +DOXE10CA PO; +LEVA45AE INH; -LEVO-14 PO; +LEVO-371 PO; -MENT4GEL EXT; +MENT4GEL TD; -META1TAB22 PO; +MGCS/ OR; -NRV/5 PO; -OMEP40CA PO; +PRLSR20 PO; -SYMIN/8045 INH; +VALA1TAB31 PO; -XOPENEX INH; -ZOLP10TA PO
--- NOTE | 2017-03-19 17:56 | DIAGNOSTIC IMAGING REPORT ---
CHEST 2 VIEWS ROUTINE CLINICAL HISTORY: DORSALGIA BACK PAIN COMPARISON STUDY: 01/11/2017 FINDINGS: The cardiac and mediastinal contours are normal. There is no evidence of focal pulmonary consolidation. There is no evidence of failure. No pleural effusions are visualized.[ There are minimal subsegmental basilar atelectatic changes. Linear atelectasis/scarring is also present on the lateral view in the retroxiphoid region. IMPRESSION: No active disease in the chest. Electronically signed by: Fortunato Gómez M.D. 03/19/2017 5:54 PM Dictated Date/Time: 03/19/2017 5:53 PM
== END | disposition home or self-care (01) ==
LOC: C.RAD 17:31
PROVIDERS: ATTEND Family Medicine
DX: M54.9 Dorsalgia, unspecified (principal)

== ENCOUNTER → 2017-04-23 | Outpatient (CLI) | payer OTHER ==
[~2017-04-23] MED LIST changes: -LEVO-371 PO; +LEVO5TAB2 PO
--- NOTE | 2017-04-23 17:59 | DIAGNOSTIC IMAGING REPORT ---
CHEST 2 VIEWS ROUTINE HISTORY: 56 years-old Female COUGH acute cough and fever COMPARISON: Chest radiographs 03/19/2017 TECHNIQUE: PA and lateral views of the chest FINDINGS: Cardiomediastinal and hilar silhouettes are within normal limits. Atherosclerosis of the aorta. No pneumothorax, pleural effusion, focal airspace consolidation or overt pulmonary edema. Minimal linear subsegmental opacities are seen within the lung bases, unchanged suggesting scarring or atelectasis. Bones of the chest are grossly intact. Upper abdomen appears unremarkable. IMPRESSION: No acute cardiopulmonary process. No focal airspace consolidation to suggest pneumonia. The above report was generated using voice recognition software. It may contain grammatical, syntax or spelling errors. Electronically signed by: Henry Lincoln M.D. 04/23/2017 5:58 PM Dictated Date/Time: 04/23/2017 5:56 PM
== END | disposition home or self-care (01) ==
LOC: C.RAD 17:35
PROVIDERS: ATTEND Family Medicine
DX: R05 Cough (principal)

== ENCOUNTER 2017-06-17 13:58 | Inpatient (IN) | payer OTHER ==
[~2017-06-17] VITALS: Ht 157.5 cm; Wt 67.2 kg
[~2017-06-17 13:58] MED LIST changes: -BENZ100C7 PO; -CHN/1 PO; -CHOL2000 PO; -CLBCRM30 EXT; -CLON1TAB3 PO; -DENO60SO INJ; -FAMO1TAB71 PO; -FLAX1CAP11 PO; -FURO-85 PO; -LEVO5TAB2 PO; -MELATAB2 PO; -MENT4GEL TD; -MISCCAP80 PO; -MONT1TAB3 PO; -NASONEX NAE; -ONDA4TAB46 PO; -OXYC-57 PO; -PRLSR20 PO; -SILO8CAP PO; -ULT50 PO; -VALA1TAB31 PO
--- NOTE | 2017-06-17 14:11 | EMERGENCY ROOM VISIT NOTE ---
History Report prepared by Shane: Ryan Henderson Under the Supervision of: Dr. Bob Boyce M.D. First contact with patient: 14:01 Stated Complaint: FEVER/SOB History of Present Illness The patient is a 57 year old female who presents to the Emergency Room with complaints of a fever that began last night. She has a past medical history of asthma, GERD, osteomyelitis, fibromyalgia, and multiple cancers that are in remission. Per the patient's home health cafeteria assistant, the patient's temperature was 102 F. Yesterday evening, the patient began to have an episode of her acid reflux which made her begin coughing. She then began to experience chills, generalized body aches, shortness of breath, and a headache. She has been having intermittent diarrhea as well. She notes that her current symptoms do not feel like an exacerbation of her asthma, but they feel like her past episode of cellulitis. She denies any chest tightness, vomiting, abdominal pain , or abnormal urinary symptoms. Per EMS, the patient was 90-92% on room air, and needed to be on 6L of oxygen to increase her saturation to 95%. She took a Percocet before arrival which did not help her pains. Source of History: patient Onset: last night Position: other (global) Symptom Intensity: 102 F Quality: other (Fever) Timing: waxes/wanes Associated Symptoms: + chills, + headache, + cough, + SOB, + diarrhea, No chest pain, No vomiting, No abdominal pain, No urinary symptoms Note: She is experiencing generalized body aches. Review of Systems See HPI for pertinent positives & negatives. A total of 10 systems reviewed and were otherwise negative. 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 Nurse's notes were reviewed and I agree with. Family History Diabetes mellitus FH: cancer FH: emphysema FH: heart disease Hypertension Kidney disease Kidney stones Social History Smoking Status: Never Smoker Alcohol Use: none Drug Use: none Marital Status: Housing Status: lives with family Occupation Status: unemployed Current/Historical Medications Scheduled Allopurinol (Allopurinol), 300 MG PO DAILY Ascorbic Acid (Vitamin C), 500 MG PO QAM Chlorzoxazone (Parafon Forte Dsc), 500 MG PO TID Cholecalciferol (Vitamin D3), 2,000 UNITS PO QAM Clobetasol Propionate (Clobetasol Propionate Cream 0.05%), 1 APPLN EXT DAILY Clonazepam (Klonopin), 1.5 MG PO HS Denosumab (Prolia), 1 DOSE INJ [id number] Famotidine (Pepcid), 20 MG PO BID Flaxseed (Linseed) (Flax Seed Oil), 1 CAP PO QAM Furosemide (Lasix), 0.5 TAB PO DAILY Levocetirizine Dihydrochloride (Xyzal), 5 MG PO HS Melatonin (Melatonin Maximum Strengt), 5-10 MG PO HS Montelukast Sodium (Singulair), 10 MG PO HS Omeprazole (Prilosec), 20 MG PO BID Probiotic Product (Probiotic), 1 CAP PO TID Silodosin (Rapaflo), 8 MG PO QPM Varenicline (Chantix), 1 MG PO BID Zolpidem Tartrate (Ambien), 10 MG PO HS [Nasonex], 1-2 SPRAY KEELEY DAILY Scheduled PRN Benzonatate (Benzonatate), 100 MG PO DIRECTED PRN for Cough Fluticasone Furoate-Vilanterol (Breo Ellipta), 1 PUFF INH DAILY PRN for SOB/ Wheezing Levalbuterol Tartrate (Levalbuterol Tartrate Hfa), 2 PUFF INH QID PRN for SOB/ Wheezing Menthol (Topical Analgesic) (Biofreeze), 1 APPLN TD BID PRN for Pain Ondansetron Hcl (Zofran), 4 MG PO Q4H PRN for Nausea Oxycodone/Acetaminophen 5MG/325MG (Percocet 5MG/325MG), 1-2 TABLETS PO QID PRN for Pain Tramadol HCl (Tramadol HCl), 100 MG PO TID PRN for Pain Valacyclovir Hcl (Valtrex), 1 GM PO DAILY PRN for FLARES Allergies Coded Allergies: Dantrolene (Verified Allergy, Severe, SHORT BREATH, VOMITING, 08/08/16) Ranitidine (Verified Allergy, Severe, nausea, sob, 08/08/16) Camphor (Verified Allergy, Intermediate, RASH, 08/08/16) Menthol (Verified Allergy, Intermediate, RASH, 08/08/16) Metronidazole (Verified Allergy, Intermediate, GI SYMPTOMS, 08/08/16) patien states " I can take IV Flagyl " Phenol (Verified Allergy, Intermediate, RASH, 08/08/16) Etodolac (Verified Allergy, Mild, ?, 08/08/16) Formoterol (Verified Allergy, Mild, THRUSH, RASH, 08/08/16) Thrush and Rash Indomethacin (Verified Allergy, Mild, RASH, 08/08/16) Metoclopramide (Verified Allergy, Mild, ?, 08/08/16) Mometasone (Verified Allergy, Mild, THRUSH, RASH, 08/08/16) Thrush and Rash Morphine (Verified Allergy, Mild, `, 08/08/16) Nortriptyline (Verified Allergy, Mild, ?, 08/08/16) Tamoxifen (Verified Allergy, Mild, ?, 08/08/16) Acellular Pertussis (Verified Allergy, Unknown, `, 08/08/16) Albuterol (Verified Allergy, Unknown, `, 08/08/16) Aluminum Phosphate (Verified Allergy, Unknown, `, 08/08/16) Anastrozole (Verified Allergy, Unknown, ?, 08/08/16) Baclofen (Verified Allergy, Unknown, unknown, 08/08/16) Carisoprodol (Verified Allergy, Unknown, `, 08/08/16) Celecoxib (Verified Allergy, Unknown, unknown, 08/08/16) Cephalexin (Verified Allergy, Unknown, unknown, 08/08/16) Cephalosporins (Verified Allergy, Unknown, ?, 08/08/16) Clarithromycin (Verified Allergy, Unknown, ?, 08/08/16) Cyclobenzaprine (Verified Allergy, Unknown, `, 08/08/16) Desipramine (Verified Allergy, Unknown, `, 08/08/16) Diphtheria Toxoid (Verified Allergy, Unknown, `, 08/08/16) Doxycycline (Verified Allergy, Unknown, unknown, 08/08/16) Gabapentin (Verified Allergy, Unknown, unknown, 08/08/16) Guaifenesin (Verified Allergy, Unknown, `, 08/08/16) Hydrocodone (Verified Allergy, Unknown, ?, 08/08/16) Hydromorphone (Verified Allergy, Unknown, UNKNOWN, 06/17/17) Letrozole (Verified Allergy, Unknown, `, 08/08/16) Methocarbamol (Verified Allergy, Unknown, ?, 08/08/16) Mirtazapine (Verified Allergy, Unknown, unknown, 08/08/16) Naproxen (Verified Allergy, Unknown, `, 08/08/16) Penicillins (Verified Allergy, Unknown, UNKNOWN, 08/08/16) Phenoxyethanol (Verified Allergy, Unknown, `, 08/08/16) Phenylpropanolamine (Verified Allergy, Unknown, `, 08/08/16) Pseudoephedrine (Verified Allergy, Unknown, ?, 08/08/16) Quetiapine (Verified Allergy, Unknown, unknown, 08/08/16) Sulfa Antibiotics (Verified Allergy, Unknown, `, 08/08/16) Sulfamethoxazole w/Trimethoprim (Verified Allergy, Unknown, unknown, ) Sympathomimetics (Verified Allergy, Unknown, `, 08/08/16) Terazosin (Verified Allergy, Unknown, `, 08/08/16) Tetanus Toxoid (Verified Allergy, Unknown, `, 08/08/16) Trazodone (Verified Allergy, Unknown, `, 08/08/16) Triamterene (Verified Allergy, Unknown, ?, 08/08/16) Vilazodone (Verified Allergy, Unknown, `, 08/08/16) Yellow Dye (Verified Allergy, Unknown, UNSURE, 08/08/16) Temazepam (Verified Adverse Reaction, Severe, STRANGE DREAMS, 08/08/16) Hydrochlorothiazide (Verified Adverse Reaction, Intermediate, GOUT, 08/08/16 ) Hydrochlorothiazide w/Triamterene (Verified Adverse Reaction, Intermediate , GOUT, 08/08/16) Levomilnacipran (Verified Adverse Reaction, Intermediate, CONFUSION, ) Confused Ascorbate (Verified Adverse Reaction, Mild, DIARRHEA, 08/08/16) diarrhea Biotin (Verified Adverse Reaction, Mild, DIARRHEA, 08/08/16) Calcium (Verified Adverse Reaction, Mild, DIARRHEA, 08/08/16) diarrhea Copper (Verified Adverse Reaction, Mild, DIARRHEA, 08/08/16) diarrhea Folic Acid (Verified Adverse Reaction, Mild, DIARRHEA, 08/08/16) Diarrhea Iron (Verified Adverse Reaction, Mild, DIARRHEA, 08/08/16) diarrhea Niacinamide (Verified Adverse Reaction, Mild, DIARRHEA, 08/08/16) diarrhea Pantothenic Acid (Verified Adverse Reaction, Mild, DIARRHEA, 08/08/16) Pregabalin (Verified Adverse Reaction, Mild, DIARRHEA, 08/08/16) Diarrhea Pyridoxine (Verified Adverse Reaction, Mild, DIARRHEA, 08/08/16) diarrhea Riboflavin (Verified Adverse Reaction, Mild, DIARRHEA, 08/08/16) diarrhea Thiamine (Verified Adverse Reaction, Mild, DIARRHEA, 08/08/16) diarrhea Toremifene (Verified Adverse Reaction, Mild, COLD SORE, VAGINAL DISCHARGE , 08/08/16) Cold Sore and Vaginal Discharge Vitamin A (Verified Adverse Reaction, Mild, DIARRHEA, 08/08/16) diarrhea Vitamin B12 (Verified Adverse Reaction, Mild, DIARRHEA, 08/08/16) diarrhea Vitamin D (Verified Adverse Reaction, Mild, DIARRHEA, 08/08/16) diarrhea Vitamin E (Verified Adverse Reaction, Mild, DIARRHEA, 08/08/16) diarrhea Zinc (Verified Adverse Reaction, Mild, DIARRHEA, 08/08/16) diarrhea Bupropion (Verified Adverse Reaction, Unknown, VOMIT, 06/17/17) Hydroxychloroquine (Verified Adverse Reaction, Unknown, GI SYMPTOMS, 06/17) Tizanidine (Verified Adverse Reaction, Unknown, RINGING,BLACKOUT, 08/08/16) Physical Exam Vital Signs Date Time Temp Pulse Resp B/P (MAP) Pulse Ox O2 Delivery O2 Flow Rate FiO2 06/17/17 16:01 36.6 106 20 152/104 94 Nasal Cannula 2.0 06/17/17 14:22 94 2.0 06/17/17 14:19 37.2 112 22 158/110 91 Room Air 2.0 06/17/17 14:15 119 Physical Exam General: Mildly-ill but non-toxic appearing middle aged female in no acute distress. Occasional dry cough, but no respiratory distress. HEENT: Normal cephalic atraumatic. Pupils are equal round and reactive to light. Extraocular movements are intact. Oropharynx is pink with moist mucous membranes. No swelling of the mouth lips or tongue. Neck: Supple with a midline trachea. No meningeal signs or stiffness, no JVD or bruits. No Stridor. Chest: Bilateral mastectomy. Crackles noted to left base. No wheezes or rhonchi. No increased work of breathing. Heart: regular rate and rhythm. Abdomen: Soft nontender, nondistended without rebound guarding or rigidity. Extremities: No cyanosis clubbing or edema. No calf tenderness or assymetry Spine/Back. Non tender to palpation. No CVA tenderness Skin: Good turgor without rashes. Neurologic exam: Cranial nerves two through 12 are intact. Motor and sensation are intact and symmetrical throughout. Medical Decision & Procedures ER Provider Diagnostic Interpretation: Radiology results as stated below per my review and radiologist interpretation: CHEST ONE VIEW PORTABLE CLINICAL HISTORY: Sepsis FEVER, SHORTNESS OF BREATH COMPARISON STUDY: 04/23/2017 FINDINGS: The heart is normal in size. Since the prior study, the patient has developed bibasilar opacities. The right basilar opacities are likely atelectatic. Left basilar opacities may represent a pneumonia given the clinical history. There are no pleural effusions.[ IMPRESSION: Interval development of bibasilar opacities left greater than right. The left basilar opacities may represent a pneumonia given the clinical history. Clinical and radiographic follow-up is recommended. Electronically signed by: Fortunato Gómez M.D. 06/17/2017 2:39 PM Dictated Date/Time: 06/17/2017 2:38 PM Laboratory Results 06/17/17 14:30 Red Blood Count 4.68, Mean Corpuscular Volume 92.5, Mean Corpuscular Hemoglobin 31.8, Mean Corpuscular Hemoglobin Concent 34.4, Mean Platelet Volume 10.9, Neutrophils (%) (Auto) 85.0, Lymphocytes (%) (Auto) 10.1, Monocytes (%) (Auto) 4.2, Eosinophils (%) (Auto) 0.3, Basophils (%) (Auto) 0.1, Neutrophils # (Auto) 9.64, Lymphocytes # (Auto) 1.15, Monocytes # (Auto) 0.48, Eosinophils # (Auto) 0.03, Basophils # (Auto) 0.01 06/17/17 14:30 Test 06/17/17 14:30 06/17/17 14:39 06/17/17 15:50 06/17/17 15:55 White Blood Count 11.34 K/uL (4.8-10.8) Red Blood Count 4.68 M/uL (4.2-5.4) Hemoglobin 14.9 g/dL (12.0-16.0) Hematocrit 43.3 % (37-47) Mean Corpuscular Volume 92.5 fL (80-100) Mean Corpuscular Hemoglobin 31.8 pg (25-34) Mean Corpuscular Hemoglobin Concent 34.4 g/dl (32-36) Platelet Count 219 K/uL (130-400) Mean Platelet Volume 10.9 fL (7.4-10.4) Neutrophils (%) (Auto) 85.0 % Lymphocytes (%) (Auto) 10.1 % Monocytes (%) (Auto) 4.2 % Eosinophils (%) (Auto) 0.3 % Basophils (%) (Auto) 0.1 % Neutrophils # (Auto) 9.64 K/uL (1.4-6.5) Lymphocytes # (Auto) 1.15 K/uL (1.2-3.4) Monocytes # (Auto) 0.48 K/uL (0.11-0.59) Eosinophils # (Auto) 0.03 K/uL (0-0.5) Basophils # (Auto) 0.01 K/uL (0-0.2) RDW Standard Deviation 46.1 fL (36.4-46.3) RDW Coefficient of Variation 13.6 % (11.5-14.5) Immature Granulocyte % (Auto) 0.3 % Immature Granulocyte # (Auto) 0.03 K/uL (0.00-0.02) Anion Gap 5.0 mmol/L (3-11) Est Creatinine Clear Calc Drug Dose 60.5 ml/min Estimated GFR () 81.1 Estimated GFR (Non- 70.0 BUN/Creatinine Ratio 18.7 (10-20) Calcium Level 8.9 mg/dl (8.5-10.1) Total Bilirubin 0.6 mg/dl (0.2-1) Aspartate Amino Transf (AST/SGOT) U/L (15-37) Alanine Aminotransferase (ALT/SGPT) 35 U/L (12-78) Alkaline Phosphatase 111 U/L (45-117) Total Protein 7.1 gm/dl (6.4-8.2) Albumin 3.5 gm/dl (3.4-5.0) Globulin 3.6 gm/dl (2.5-4.0) Albumin/Globulin Ratio 1.0 (0.9-2) Bedside Lactic Acid Venous 2.79 mmol/L (0.90-1.70) Influenza Type A Antigen Neg for Influ A (NEG) Influenza Type B Antigen Neg for Influ B (NEG) Urine Color YELLOW Urine Appearance CLEAR (CLEAR) Urine pH 7.0 (4.5-7.5) Urine Specific [place] 1.007 (1.000-1.030) Urine Protein NEG (NEG) Urine Glucose (UA) NEG (NEG) Urine Ketones NEG (NEG) Urine Occult Blood NEG (NEG) Urine Nitrite NEG (NEG) Urine Bilirubin NEG (NEG) Urine Urobilinogen NEG (NEG) Urine Leukocyte Esterase NEG (NEG) Laboratory studies as stated above per my review. Medications Administered Medications (Trade) Dose Ordered Sig/Tea Route Start Time Stop Time Status Last Admin Dose Admin Sodium Chloride 1,000 ml @ 999 mls/hr Q1H1M STAT IV 06/17/17 14:55 06/17/17 15:55 DC 06/17/17 15:51 999 MLS/HR Oxycodone/ Acetaminophen (Percocet 5-325mg Tab) 1 tab NOW STAT PO 06/17/17 14:55 06/17/17 14:57 DC 06/17/17 15:52 1 TAB ECG Indication: SOB/dyspnea Rate (beats per minute): 113 Rhythm: sinus tachycardia Findings: other (nonspecific t-wave abnormalities, normal intervals) Comparison ECG Date: November 02, 2015 Change: no significant change (except the rate has increased) ED Course 1401: Past medical records reviewed. The patient was evaluated in room B9, and a complete history and physical examination were performed. 1455: Ordered Oxycodone/Acetaminophen 1 tab PO, Levofloxacin 750 mg IV, Sodium Chloride 1000 ml @ 999 mls/hr IV 1524: Upon reevaluation, the patient is resting. I discussed the results and treatment plan with the patient. She verbalized agreement of the treatment plan. I spoke with Dr. Hoyt of [facility] about the patient's case. The patient will be evaluated by him for further management. Medical Decision Differentials include, but are not limited to; pneumonia, sepsis, CHF, cardiac disease, or electrolyte or metabolic abnormality. This patient comes in as described above. She's had fever cough and chills last evening. She does have a significant past medical history with breast cancer and GIST as well as fibromyalgia and asthma. O2 sat is mildly low at 91. IV access was established. Blood cultures was obtained as well as lactic acid, chest x-ray, EKG. chest x-ray shows a findings consistent with a bilateral pneumonia. This does fit clinically as she has crackles on that side and her symptoms are consistent with pneumonia. she was given 1 L IV normal saline bolus and Levaquin 750 mg IV. She has multiple antibiotic allergies but has had Levaquin before. She also requesting pain medication she took one Percocet before and was given Percocet here by mouth 1. She has no significant electrolyte or metabolic abnormalities. Lactic acid is mildly elevated in the low 2 range. I do think she needs to be admitted for IV antibiotics and further treatment and evaluation have consulted the [facility] hospitalist to see the patient for admission/observation. And I have also discussed the case son who agrees with the plan. Medication Reconcilliation Current Medication List: was personally reviewed by me Blood Pressure Screening Patient's blood pressure: Elevated blood pressure Referred to the hospitalist Consults Time Called: 1520 Consulting Physician: Dr. Hoyt - [facility] Returned Call: 1524 Discussed the patient's case. The patient will be evaluated for further management. Impression Primary Impression: Sepsis Additional Impressions: Pneumonia Leukocytopenia Scribe Attestation The scribe's documentation has been prepared under my direction and personally reviewed by me in its entirety. I confirm that the note above accurately reflects all work, treatment, procedures, and medical decision making performed by me. Departure Information Dispostion Being Evaluated By Hospitalist Referrals Ryan Santana M.D. (PCP) Problem Qualifiers
[2017-06-17] MEDS ORDERED: FLAX1CAP11 PO (14:16)
[2017-06-17] MEDS ORDERED: ONDA4TAB46 PO (14:16)
[2017-06-17] MEDS ORDERED: NASONEX NAE (14:16)
[2017-06-17] MEDS ORDERED: MONT1TAB3 PO (14:16)
[2017-06-17] MEDS ORDERED: CHN/1 PO (14:16)
[2017-06-17] MEDS ORDERED: MISCCAP80 PO (14:16)
[2017-06-17] MEDS ORDERED: FURO-85 PO (14:16)
[2017-06-17] MEDS ORDERED: FAMO-103 PO (14:16)
[2017-06-17] MEDS ORDERED: CLON1TAB3 PO (14:16)
[2017-06-17] MEDS ORDERED: MELATAB2 PO (14:16)
[2017-06-17] MEDS ORDERED: DENO60SO INJ (14:16)
[2017-06-17] MEDS ORDERED: OXYC-57 PO (14:16)
[2017-06-17] MEDS ORDERED: CHOL2000 PO (14:16)
[2017-06-17] MEDS ORDERED: SILO8CAP PO (14:16)
--- NOTE | 2017-06-17 14:41 | DIAGNOSTIC IMAGING REPORT ---
CHEST ONE VIEW PORTABLE CLINICAL HISTORY: Sepsis FEVER, SHORTNESS OF BREATH COMPARISON STUDY: 04/23/2017 FINDINGS: The heart is normal in size. Since the prior study, the patient has developed bibasilar opacities. The right basilar opacities are likely atelectatic. Left basilar opacities may represent a pneumonia given the clinical history. There are no pleural effusions.[ IMPRESSION: Interval development of bibasilar opacities left greater than right. The left basilar opacities may represent a pneumonia given the clinical history. Clinical and radiographic follow-up is recommended. Electronically signed by: Fortunato Gómez M.D. 06/17/2017 2:39 PM Dictated Date/Time: 06/17/2017 2:38 PM
[2017-06-17 14:54] LABS: BASO % 0.1 %; BASO ABS # 0.01 K/uL (0-0.2); COMPLETE YES; EOS % 0.3 %; HEMATOCRIT 43.3 % (37-47); IG% 0.3 %; LYMPH % 10.1 %; LYMPH ABS # 1.15 K/uL (1.2-3.4); MEAN CELL VOLUME 92.5 fL (80-100); MEAN CORPUSCULAR HEMOGLOBIN 31.8 pg (25-34); MEAN CORPUSCULAR HGB CONC 34.4 g/dl (32-36); MEAN PLATELET VOLUME 10.9 fL (7.4-10.4); MONO % 4.2 %; PLATELET COUNT 219 K/uL (130-400); RED BLOOD COUNT 4.68 M/uL (4.2-5.4); WHITE BLOOD COUNT 11.34 K/uL (4.8-10.8)
[2017-06-17] MEDS ORDERED: OXYCODONE/ACETAMINOPHEN 5-325 TAB PO STA (14:55)
[2017-06-17] MEDS ORDERED: SODIUM CHLORIDE 0.9% 1000ML 1,000 ML IV STA (14:55)
[2017-06-17] MEDS ORDERED: LEVAQUIN 750MG / 150ML D5W IV STA (14:55)
[2017-06-17] MEDS ORDERED: CHLO1TAB70 PO (15:18)
[2017-06-17 15:45] LABS: BUN/CREATININE RATIO 18.7 (10-20); CALCIUM 8.9 mg/dl (8.5-10.1); CREATININE 0.9 mg/dl (0.60-1.20)
[2017-06-17 16:04] LABS: URINE APPEARANCE CLEAR (CLEAR); URINE BILIRUBIN NEG (NEG); URINE COLOR YELLOW; URINE NITRITE NEG (NEG); URINE SPECIFIC GRAVITY 1.007 (1.000-1.030); UROBILINOGEN NEG (NEG)
[2017-06-17 16:07] LABS: MANUAL MICROSCOPIC REQUIRED? NO; REVIEW REQ? NO
[2017-06-17] MEDS ORDERED: FLUT1INH INH (16:13)
[2017-06-17] MEDS ORDERED: ZOLP10TA PO (16:13)
[2017-06-17] MEDS ORDERED: ALL300 PO (16:13)
[2017-06-17] MEDS ORDERED: LEVA45AE INH (16:13)
[2017-06-17] MEDS ORDERED: LEValbuterol HFA 15GM INHALER INH PRN (16:30)
[2017-06-17] MEDS ORDERED: TRAMADOL HCL 50 MG TAB PO PRN (16:30)
[2017-06-17] MEDS ORDERED: OXYCODONE/ACETAMINOPHEN 5-325 TAB PO PRN (16:30)
[2017-06-17] MEDS ORDERED: ONDANSETRON 4 MG TAB PO PRN (16:30)
--- NOTE | 2017-06-17 16:34 | History and Physical ---
History & Physical Date & Time of Service: Jun 17, 2017 at 15:36 Chief Complaint: Fever/Sob Primary Care Physician: Ryan Santana M.D. History of Present Illness Source: patient Ms. Sr is here for chills, fever, sob and generalized pain which she feels is from her fibromyalgia and osteoarthritis. Symptoms started last night with acid reflux that was causing her to cough, no sputum. She has a history of frequent pneumonia including 9 times in 2015. She did not have any vomiting but had little appetite. She had some diarrhea last night. She also has head fullness. She does not have runny nose or sore throat. ROS Constitutional: see HPI Respiratory: see HPI Cardiac: no chest pain, palpitations, edema, orthopnea, she does feel lightheadedness GI: no abdominal pain, nausea, vomiting, diarrhea or constipation : no dysuria or hesitancy Extremities: see HPI Skin: no rash Other systems reviewed and negative Past Medical/Surgical History Medical Problems: (1) Asthma Status: Chronic (2) BRACHIAL NEURITIS NOS Status: Chronic (3) Breast cancer Permanent Comment: Infiltrating ductal carcinoma the left breast [id number] estrogen receptor positive, progesterone receptor positive, HER-2/kae negative Status post left breast mastectomy with close margins Status post infiltrating ductal carcinoma the right breast [id number] Estrogen receptor positive, progesterone receptor positive HER-2/kae negative Status post right modified radical mastectomy with close margin Status post completion of radiation therapy to bilateral chest perez completed 01/15/2008 Status: Resolved (4) Chronic back pain Status: Chronic (5) CHRONIC LIVER DIS NEC Status: Chronic (6) CYST OF KIDNEY, ACQUIRED Status: Chronic (7) DEPRESSIVE DISORDER NEC Status: Chronic (8) EMPHYSEMA NEC Status: Chronic (9) ESOPHAGEAL REFLUX Status: Chronic (10) Fibromyalgia Status: Chronic (11) GOUT NOS Status: Chronic (12) HX OF BREAST MALIGNANCY Status: Chronic (13) Hypertension Status: Chronic (14) LUMB/LUMBOSAC DISC DEGEN Status: Chronic (15) MAL NIRMALA BREAST LOW-OUTER Status: Chronic (16) 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 ) Smokeless Tobacco Use: No Alcohol Use: none Drug Use: none Marital Status: Housing status: lives alone Occupational Status: unemployed (disabled) Immunizations History of Influenza Vaccine: No History of Tetanus Vaccine?: Unknown History of Pneumococcal: Yes History of Hepatitis B Vaccine: Unknown Multi-Drug Resistant Organisms History of MDRO: No Allergies Coded Allergies: Dantrolene (Verified Allergy, Severe, SHORT BREATH, VOMITING, 08/08/16) Ranitidine (Verified Allergy, Severe, nausea, sob, 08/08/16) Camphor (Verified Allergy, Intermediate, RASH, 08/08/16) Menthol (Verified Allergy, Intermediate, RASH, 08/08/16) Metronidazole (Verified Allergy, Intermediate, GI SYMPTOMS, 08/08/16) patien states " I can take IV Flagyl " Phenol (Verified Allergy, Intermediate, RASH, 08/08/16) Etodolac (Verified Allergy, Mild, ?, 08/08/16) Formoterol (Verified Allergy, Mild, THRUSH, RASH, 08/08/16) Thrush and Rash Indomethacin (Verified Allergy, Mild, RASH, 08/08/16) Metoclopramide (Verified Allergy, Mild, ?, 08/08/16) Mometasone (Verified Allergy, Mild, THRUSH, RASH, 08/08/16) Thrush and Rash Morphine (Verified Allergy, Mild, `, 08/08/16) Nortriptyline (Verified Allergy, Mild, ?, 08/08/16) Tamoxifen (Verified Allergy, Mild, ?, 08/08/16) Acellular Pertussis (Verified Allergy, Unknown, `, 08/08/16) Albuterol (Verified Allergy, Unknown, `, 08/08/16) Aluminum Phosphate (Verified Allergy, Unknown, `, 08/08/16) Anastrozole (Verified Allergy, Unknown, ?, 08/08/16) Baclofen (Verified Allergy, Unknown, unknown, 08/08/16) Carisoprodol (Verified Allergy, Unknown, `, 08/08/16) Celecoxib (Verified Allergy, Unknown, unknown, 08/08/16) Cephalexin (Verified Allergy, Unknown, unknown, 08/08/16) Cephalosporins (Verified Allergy, Unknown, ?, 08/08/16) Clarithromycin (Verified Allergy, Unknown, ?, 08/08/16) Cyclobenzaprine (Verified Allergy, Unknown, `, 08/08/16) Desipramine (Verified Allergy, Unknown, `, 08/08/16) Diphtheria Toxoid (Verified Allergy, Unknown, `, 08/08/16) Doxycycline (Verified Allergy, Unknown, unknown, 08/08/16) Gabapentin (Verified Allergy, Unknown, unknown, 08/08/16) Guaifenesin (Verified Allergy, Unknown, `, 08/08/16) Hydrocodone (Verified Allergy, Unknown, ?, 08/08/16) Letrozole (Verified Allergy, Unknown, `, 08/08/16) Methocarbamol (Verified Allergy, Unknown, ?, 08/08/16) Mirtazapine (Verified Allergy, Unknown, unknown, 08/08/16) Naproxen (Verified Allergy, Unknown, `, 08/08/16) Penicillins (Verified Allergy, Unknown, UNKNOWN, 08/08/16) Phenoxyethanol (Verified Allergy, Unknown, `, 08/08/16) Phenylpropanolamine (Verified Allergy, Unknown, `, 08/08/16) Pseudoephedrine (Verified Allergy, Unknown, ?, 08/08/16) Quetiapine (Verified Allergy, Unknown, unknown, 08/08/16) Sulfa Antibiotics (Verified Allergy, Unknown, `, 08/08/16) Sulfamethoxazole w/Trimethoprim (Verified Allergy, Unknown, unknown, ) Sympathomimetics (Verified Allergy, Unknown, `, 08/08/16) Terazosin (Verified Allergy, Unknown, `, 08/08/16) Tetanus Toxoid (Verified Allergy, Unknown, `, 08/08/16) Trazodone (Verified Allergy, Unknown, `, 08/08/16) Triamterene (Verified Allergy, Unknown, ?, 08/08/16) Vilazodone (Verified Allergy, Unknown, `, 08/08/16) Yellow Dye (Verified Allergy, Unknown, UNSURE, 08/08/16) Temazepam (Verified Adverse Reaction, Severe, STRANGE DREAMS, 08/08/16) Hydrochlorothiazide (Verified Adverse Reaction, Intermediate, GOUT, 08/08/16 ) Hydrochlorothiazide w/Triamterene (Verified Adverse Reaction, Intermediate , GOUT, 08/08/16) Levomilnacipran (Verified Adverse Reaction, Intermediate, CONFUSION, ) Confused Ascorbate (Verified Adverse Reaction, Mild, DIARRHEA, 08/08/16) diarrhea Biotin (Verified Adverse Reaction, Mild, DIARRHEA, 08/08/16) Calcium (Verified Adverse Reaction, Mild, DIARRHEA, 08/08/16) diarrhea Copper (Verified Adverse Reaction, Mild, DIARRHEA, 08/08/16) diarrhea Folic Acid (Verified Adverse Reaction, Mild, DIARRHEA, 08/08/16) Diarrhea Iron (Verified Adverse Reaction, Mild, DIARRHEA, 08/08/16) diarrhea Niacinamide (Verified Adverse Reaction, Mild, DIARRHEA, 08/08/16) diarrhea Pantothenic Acid (Verified Adverse Reaction, Mild, DIARRHEA, 08/08/16) Pregabalin (Verified Adverse Reaction, Mild, DIARRHEA, 08/08/16) Diarrhea Pyridoxine (Verified Adverse Reaction, Mild, DIARRHEA, 08/08/16) diarrhea Riboflavin (Verified Adverse Reaction, Mild, DIARRHEA, 08/08/16) diarrhea Thiamine (Verified Adverse Reaction, Mild, DIARRHEA, 08/08/16) diarrhea Toremifene (Verified Adverse Reaction, Mild, COLD SORE, VAGINAL DISCHARGE , 08/08/16) Cold Sore and Vaginal Discharge Vitamin A (Verified Adverse Reaction, Mild, DIARRHEA, 08/08/16) diarrhea Vitamin B12 (Verified Adverse Reaction, Mild, DIARRHEA, 08/08/16) diarrhea Vitamin D (Verified Adverse Reaction, Mild, DIARRHEA, 08/08/16) diarrhea Vitamin E (Verified Adverse Reaction, Mild, DIARRHEA, 08/08/16) diarrhea Zinc (Verified Adverse Reaction, Mild, DIARRHEA, 08/08/16) diarrhea Tizanidine (Verified Adverse Reaction, Unknown, RINGING,BLACKOUT, 08/08/16) Home Medications Scheduled Allopurinol (Allopurinol), 300 MG PO DAILY Ascorbic Acid (Vitamin C), 500 MG PO QAM Chlorzoxazone (Parafon Forte Dsc), 500 MG PO TID Cholecalciferol (Vitamin D3), 2,000 UNITS PO QAM Clobetasol Propionate (Clobetasol Propionate Cream 0.05%), 1 APPLN EXT DAILY Clonazepam (Klonopin), 1.5 MG PO HS Denosumab (Prolia), 1 DOSE INJ [id number] Famotidine (Pepcid), 20 MG PO BID Flaxseed (Linseed) (Flax Seed Oil), 1 CAP PO QAM Furosemide (Lasix), 0.5 TAB PO DAILY Levocetirizine Dihydrochloride (Xyzal), 5 MG PO HS Melatonin (Melatonin Maximum Strengt), 5-10 MG PO HS Montelukast Sodium (Singulair), 10 MG PO HS Omeprazole (Prilosec), 20 MG PO BID Probiotic Product (Probiotic), 1 CAP PO TID Silodosin (Rapaflo), 8 MG PO QPM Varenicline (Chantix), 1 MG PO BID Zolpidem Tartrate (Ambien), 10 MG PO HS [Nasonex], 1-2 SPRAY KEELEY DAILY Scheduled PRN Benzonatate (Benzonatate), 100 MG PO DIRECTED PRN for Cough Fluticasone Furoate-Vilanterol (Breo Ellipta), 1 PUFF INH DAILY PRN for SOB/ Wheezing Levalbuterol Tartrate (Levalbuterol Tartrate Hfa), 2 PUFF INH QID PRN for SOB/ Wheezing Menthol (Topical Analgesic) (Biofreeze), 1 APPLN TD BID PRN for Pain Ondansetron Hcl (Zofran), 4 MG PO Q4H PRN for Nausea Oxycodone/Acetaminophen 5MG/325MG (Percocet 5MG/325MG), 1-2 TABLETS PO QID PRN for Pain Tramadol HCl (Tramadol HCl), 100 MG PO TID PRN for Pain Valacyclovir Hcl (Valtrex), 1 GM PO DAILY PRN for FLARES Physical Exam Vital Signs Date Time Temp Pulse Resp B/P (MAP) Pulse Ox O2 Delivery O2 Flow Rate FiO2 06/17/17 14:22 94 2.0 06/17/17 14:19 37.2 112 22 158/110 91 Room Air 2.0 06/17/17 14:15 119 General: no distress Eyes: normal inspection, PERLL Respiratory: chest non tender, course bases bilaterally, no respiratory distress , no accessory muscle use Cardiac: regular rate and rhythm, no rub or gallop, no murmur, no edema, no jvd GI/: active bowel sounds, no abd pain or tenderness, soft, non distended Extremities: normal range of motion, normal strength, non tender Neuro/Psych: alert and oriented x 3, normal mood and affect Skin: normal color, dry Diagnostics Laboratory Results Results Past 24 Hours Test 06/17/17 14:30 06/17/17 14:39 Range/Units White Blood Count 11.34 4.8-10.8 K/uL Red Blood Count 4.68 4.2-5.4 M/uL Hemoglobin 14.9 12.0-16.0 g/dL Hematocrit 43.3 37-47 % Mean Corpuscular Volume 92.5 80-100 fL Mean Corpuscular Hemoglobin 31.8 25-34 pg Mean Corpuscular Hemoglobin Concent 34.4 32-36 g/dl Platelet Count 219 130-400 K/uL Mean Platelet Volume 10.9 7.4-10.4 fL Neutrophils (%) (Auto) 85.0 % Lymphocytes (%) (Auto) 10.1 % Monocytes (%) (Auto) 4.2 % Eosinophils (%) (Auto) 0.3 % Basophils (%) (Auto) 0.1 % Neutrophils # (Auto) 9.64 1.4-6.5 K/uL Lymphocytes # (Auto) 1.15 1.2-3.4 K/uL Monocytes # (Auto) 0.48 0.11-0.59 K/uL Eosinophils # (Auto) 0.03 0-0.5 K/uL Basophils # (Auto) 0.01 0-0.2 K/uL RDW Standard Deviation 46.1 36.4-46.3 fL RDW Coefficient of Variation 13.6 11.5-14.5 % Immature Granulocyte % (Auto) 0.3 % Immature Granulocyte # (Auto) 0.03 0.00-0.02 K/uL Bedside Lactic Acid Venous 2.79 0.90-1.70 mmol/L Microbiology Results 06/17/17 Blood Culture, Received Pending 06/17/17 Blood Culture, Ordered Pending Diagnostic Radiology CHEST ONE VIEW PORTABLE CLINICAL HISTORY: Sepsis FEVER, SHORTNESS OF BREATH COMPARISON STUDY: 04/23/2017 FINDINGS: The heart is normal in size. Since the prior study, the patient has developed bibasilar opacities. The right basilar opacities are likely atelectatic. Left basilar opacities may represent a pneumonia given the clinical history. There are no pleural effusions.[ IMPRESSION: Interval development of bibasilar opacities left greater than right. The left basilar opacities may represent a pneumonia given the clinical history. Clinical and radiographic follow-up is recommended. Impression Assessment and Plan Ms. Sr is a 57 year old woman here for bibasilar pneumonia CA Pna - admit med surg - Ms. Sr reports she has 3 abx she can take - levaquin, cipro and clindamycin - will continue with levaquin as started in ED. - Lactic acid elevated at 2.79 - NSS @150 and repeat lactic in 4 hours - ?aspiration - patient reports that the pneumonia started after a bout of GERD with lots of coughing - already on famotidine bid and ppi - BC, no sputum production for sample - cbc, prp am - Flu swab collected in ED Asthma/emphysema - continue home inhalers GERD - continue famotidine and ppi Osteoarthritis - continue oxycodon, tramadol Smoking cessation - continue chantix Gout - continue allopurinol Advanced Directives Existing Advance Directive: Yes Existing Living Will: Yes Existing Power of Special Machine Stitcher: Yes (son) Existing Health Care Proxy: No Resuscitation Status DO NOT RESUSCITATE VTE Prophylaxis VTE Risk Assessment Done? Y/N: Yes Risk Level: Moderate Given or contraindicated: Enoxaparin (Lovenox)SQ Social Service Consult None Apply
[2017-06-17] MEDS: SODIUM CHLORIDE 0.9% 1000ML 1,000 ML IV SCH (18:12)
[2017-06-17 18:14] VITALS: BP 152/96; PULSE 104; TEMP 36.6; O2SAT 94; Ht 157.5 cm; Wt 67.2 kg
[2017-06-17] MEDS ORDERED: BENZ100C7 PO (18:54)
[2017-06-17 18:59] VITALS: BP 152/96; PULSE 104; TEMP 36.6; O2SAT 94
[2017-06-17] MEDS ORDERED: MENT4GEL TD (19:39)
[2017-06-17] MEDS ORDERED: CLBCRM30 EXT (19:42)
[2017-06-17] MEDS ORDERED: PRLSR20 PO (19:49)
[2017-06-17] MEDS ORDERED: FAMOTIDINE 20 MG TAB PO SCH (20:00)
[2017-06-17] MEDS ORDERED: PANTOprazole SOD 40 MG TAB PO SCH (20:00)
[2017-06-17] MEDS ORDERED: VARENICLINE (CHANTIX) 1 MG TAB PO SCH (20:00)
[2017-06-17] MEDS ORDERED: CHLORZOXAZONE 500 MG TAB PO SCH (20:00)
[2017-06-17] MEDS ORDERED: LACTOBACILLUS ACIDOPHILUS (FLORANEX) TAB PO SCH (20:00)
[2017-06-17] MEDS ORDERED: LEVO5TAB2 PO (20:08)
[2017-06-17] MEDS ORDERED: VALA1TAB31 PO (20:13)
[2017-06-17] MEDS ORDERED: CLONAZEPAM 1 MG TAB PO SCH (21:00)
[2017-06-17] MEDS ORDERED: CETIRIZINE HCL 10 MG TAB PO SCH (21:00)
[2017-06-17] MEDS ORDERED: ZOLPIDEM TARTRATE 10 MG TAB PO SCH (21:00)
[2017-06-17] MEDS ORDERED: MELATONIN PO SCH (21:00)
[2017-06-17] MEDS ORDERED: MONTELUKAST SOD 10 MG TAB PO SCH (21:00)
[2017-06-17] MEDS ORDERED: ULT50 PO (21:25)
[2017-06-18] MEDS: SODIUM CHLORIDE 0.9% 1000ML 1,000 ML IV SCH (00:25)
[2017-06-18] MEDS ORDERED: NURSING VERBAL MED ORDER ONE (01:15)
[2017-06-18] MEDS ORDERED: LORAZEPAM 1 MG TAB PO ONE (01:30)
--- NOTE | 2017-06-18 02:39 | Progress Note ---
Progress Note Date of Service Jun 18, 2017. Progress Note Patient was evaluated at 10 15 pm. Admitted for pneumonia She had multiple concerns: 1) IV site: Cannot have IVs in her arm due to bilateral mastectomy and LN removal. We were unaware of the details. IV team wanted to place IV in the arm and she was upset. I apologized and discussed that we could switch her Levaquin to PO and stop her IV fluids. She was in agreement with this plan She was not requiring oxygen at the time of my encounter Approved Existing IV removal 2) Multiple issues with meds Melatonin- discussed using ativan for tonight Rapaflo- discussed perhaps using flomax as an alternative Percocet supposedly not ordered. Reports intolerance to Ambien 3) Wanted Bed changed- bed was slanted and uncomfortable. Patient was generally upset about multiple issues. I was able to convince her to stay the night for further observation and that she could potentially go Home in the AM. I spent about 45 mins with this patient discussing all of the above and answering all questions. However, later received a call that patient continued to be unhappy and signed out AMA.
[2017-06-18] MEDS ORDERED: ALLOPURINOL 300 MG TAB PO SCH (08:00)
[2017-06-18] MEDS ORDERED: FLUTICASONE PROPIONATE NA SPR 16 GM BTL SCH (08:00)
[2017-06-18] MEDS ORDERED: ENOXAPARIN 40 MG/0.4 ML SYR SQ SCH (08:00)
[2017-06-18] MEDS ORDERED: CHOLECALCIFEROL 1000 INTER.UNIT TAB PO SCH (08:00)
[2017-06-18] MEDS ORDERED: LEVOFLOXACIN / D5W 750 MG in PREMIXED IN D5W 150 ML IV SCH (16:00)
== END 2017-06-18 02:37 | disposition left against medical advice (07) | DRG 195 ==
LOC: EDBD 13:58 → C.EDB 14:00 → C.4E 16:16 → ENRESERV 16:48
PROVIDERS: ADMIT Internal Medicine; ATTEND Internal Medicine
DX: J18.9 Pneumonia, unspecified organism (principal); J45.909 Unspecified asthma, uncomplicated; F17.211 Nicotine dependence, cigarettes, in remission; F32.9 Major depressive disorder, single episode, unspecified; Z66 Do not resuscitate; D72.819 Decreased white blood cell count, unspecified; K21.9 Gastro-esophageal reflux disease without esophagitis; M10.9 Gout, unspecified; I10 Essential (primary) hypertension; M81.0 Age-related osteoporosis without current pathological fracture; Z85.3 Personal history of malignant neoplasm of breast; Z83.3 Family history of diabetes mellitus; Z80.9 Family history of malignant neoplasm, unspecified; Z84.1 Family history of disorders of kidney and ureter

== ENCOUNTER → 2017-07-10 | Outpatient (CLI) | payer OTHER ==
[~2017-07-10] MED LIST changes: +ALL300 PO; -ALLO300T80 PO; +BENZ100C7 PO; +CHLO1TAB70 PO; -CHLOTAB3 PO; +CHN/1 PO; +CHOL2000 PO; +CLBCRM30 EXT; +CLON1TAB3 PO; +DENO60SO INJ; -DOXE10CA PO; +FAMO-103 PO; +FLAX1CAP11 PO; +FLUT1INH INH; +FURO-85 PO; +LEVO5TAB2 PO; +MELATAB2 PO; -MELO15TA10 PO; +MENT4GEL TD; -MGCS/ OR; +MISCCAP80 PO; +MONT1TAB3 PO; +NASONEX NAE; +ONDA4TAB46 PO; +OPTIRAY 320 IV PRN; +OXYC-57 PO; +PRLSR20 PO; +SILO8CAP PO; +ULT50 PO; +VALA1TAB31 PO; +ZOLP10TA PO
--- NOTE | 2017-07-10 14:36 | DIAGNOSTIC IMAGING REPORT ---
CT SCAN OF THE CHEST WITH IV CONTRAST CLINICAL HISTORY: Gastric cancer. COMPARISON STUDY: Chest CT scans dated 08/02/16 and 09/25/2012. TECHNIQUE: Following the IV administration of 94 cc of Optiray 320, CT scan of the thorax was performed from the thoracic inlet to the upper abdomen. Images are reviewed in the axial, sagittal, and coronal planes. IV contrast was administered without complication. A dose lowering technique was utilized adhering to the principles of ALARA. The examination is degraded by streak artifact from the left arm which could not be elevated above the chest. FINDINGS: Thyroid: Imaged portions of the thyroid gland are normal in size and attenuation. Thoracic aorta: There is mild atherosclerotic calcification of the thoracic aorta, which is normal in caliber and demonstrates standard 3-vessel arch anatomy. No dissection is seen. Pulmonary vasculature: The pulmonary trunk is normal in caliber. There are no filling defects identified in the central pulmonary vessels to indicate pulmonary embolus. Note that this examination was not protocoled for evaluation of the pulmonary arteries. Heart: The heart is top normal in size and without pericardial effusion. There are coronary artery calcifications. Lungs and pleural spaces: Emphysema is noted. There is no lobar consolidation or pleural effusion. Foci of tree-in-bud nodularity with groundglass opacities are present at both lung bases, left greater than right. The trachea and central airways are clear. There are foci of linear atelectasis versus scarring present in both lungs. A punctate calcified granuloma is seen in the right upper lobe. Mediastinum: There is no mediastinal lymphadenopathy. Cindy: Clear. Axillae: There is no axillary lymphadenopathy. Upper abdomen: The liver is steatotic. Postoperative change is identified in the stomach. Skeletal structures: The skeletal structures are osteopenic. No lytic or blastic bony lesions are seen. Soft tissues: A history of bilateral mastectomy is suggested. IMPRESSION: 1. Emphysema. 2. There is no evidence of intrathoracic metastatic disease. 3. There are foci of tree-in-bud nodularity with associated groundglass opacities present at both lung bases, left greater than right. The appearance suggests an infectious/inflammatory pneumonitis. Clinical correlation will be required. Consider 3 month follow-up chest CT to document resolution. 4. Hepatic steatosis. 5. Additional findings as above. Electronically signed by: Otilio Larsen M.D. 07/10/2017 2:35 PM Dictated Date/Time: 07/10/2017 2:30 PM
--- NOTE | 2017-07-10 14:57 | DIAGNOSTIC IMAGING REPORT ---
ABDOMEN AND PELVIS CT WITH IV AND ORAL CONTRAST CT DOSE: 693.94 mGy.cm HISTORY: Gastric cancer. TECHNIQUE: Multiaxial CT images of the abdomen and pelvis were performed following the use of intravenous and oral contrast. A dose lowering technique was utilized adhering to the principles of ALARA. COMPARISON STUDY: Abdomen and pelvis CT 08/02/2016. FINDINGS: A few linear scarlike density within the lung bases. There are also scattered tree-in-bud nodular opacities within the lung bases. No pneumoperitoneum. No pneumatosis. Stable bone island within the right ischial tuberosity. No suspicious lytic or blastic osseous lesions. Suture material again noted within the stomach consistent with postoperative change. No significant gastric wall thickening. No definite bowel wall thickening or obstruction. The bladder is unremarkable. The uterus is surgically absent. A few colonic diverticula. No retroperitoneal lymphadenopathy. Hepatic stenosis. Calcified granuloma within the left hepatic dome. No hepatic or splenic masses. The gallbladder, pancreas, and kidneys are unremarkable. Small fat-containing left inguinal hernia, unchanged. IMPRESSION: 1. No evidence for metastatic disease within the abdomen or pelvis. 2. Scattered tree-in-bud nodular opacities within the lung bases. This suggests a mild infectious bronchiolitis Electronically signed by: Maxx Silva M.D. 07/10/2017 2:55 PM Dictated Date/Time: 07/10/2017 2:29 PM
== END | disposition home or self-care (01) ==
LOC: C.CTS 13:49
PROVIDERS: ATTEND Family Medicine
DX: C50.919 Malignant neoplasm of unspecified site of unspecified female breast (principal); R10.9 Unspecified abdominal pain; C49.A0 Gastrointestinal stromal tumor, unspecified site; J43.9 Emphysema, unspecified; K76.0 Fatty (change of) liver, not elsewhere classified

== ENCOUNTER 2017-08-13 10:56 | Inpatient (IN) | payer OTHER ==
[~2017-08-13] VITALS: Ht 157.5 cm; Wt 65.0 kg
[~2017-08-13 10:56] MED LIST changes: -OPTIRAY 320 IV PRN
[2017-08-13] MEDS ORDERED: LORAZEPAM 1 MG TAB SL STA (11:16)
--- NOTE | 2017-08-13 11:22 | EMERGENCY ROOM VISIT NOTE ---
History Report prepared by Shane: Elroy Guerrero Under the Supervision of: Dr. Robby Maddox M.D. First contact with patient: 11:01 Chief Complaint: MENTAL HEALTH EVALUATION Stated Complaint: SUICIDAL History of Present Illness The patient is a 57 year old female who presents to the Emergency Room with complaints of a worsening mental status that the patient has been dealing with for the past several days. The patient states that she has been under increased stress and "pressure." She continued that, "everybody put the blame on me" for issues that she has been experiencing lately. She was yelled at by her dental equipment installer and servicer because she has been complaining that her services are not being done as well as they should be. The patient lives in [facility] and receives services from "[facility] She has been living there for one year. The patient noted that when she spoke with her Solutions Market Consultant today she informed her that she was suicidal. She has been told to "keep quiet" with her complaints, and if she does not have respect or dignity that she does not want to live. She expressed concern that she will be getting more sick every year and she is fearful of when the time comes that she cannot care for herself. She noted that, "I don't want to live in this condition." She has seen a psychiatrist, but she has not seen him in over a month. She is not on any antidepressants. Source of History: patient Onset: Several days Position: other (Psychiatric) Quality: other (Mental health status) Timing: worsening Note: Positive suicidal Review of Systems See HPI for pertinent positives & negatives. A total of 10 systems reviewed and were otherwise negative. 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 (18) MAL NIRMALA SOFT TIS ABDOMEN (19) NERV ROOT/PLEXUS DIS NEC (20) OBSTRUCTIVE SLEEP APNEA (ADULT) (PEDIATRIC) (21) OSTEOARTHRO NOS-OTH SITE (22) OSTEOPOROSIS NOS (23) Polypharmacy (24) RADIOTHERAPY FOLLOW-UP (25) SPINAL STENOSIS, LUMBAR REG, W/OUT NEUROGENIC CLAUDICATION (26) Vertigo Family History Diabetes mellitus FH: cancer FH: emphysema FH: heart disease Hypertension Kidney disease Kidney stones Social History Smoking Status: Current Every Day Smoker Alcohol Use: none Drug Use: none Marital Status: Housing Status: lives with family Occupation Status: unemployed Current/Historical Medications Scheduled Allopurinol (Allopurinol), 300 MG PO QDD Ascorbic Acid (Vitamin C), 500 MG PO QAM Budesonide/Formoterol Fumarate (Symbicort 80/4.5 Inhaler), 2 PUFFS INH BID Cholecalciferol (D 1000), 1 TAB PO BID Cholecalciferol (Vitamin D-3), 1 TAB PO DAILY Clobetasol Propionate (Clobetasol Propionate Cream 0.05%), 1 APPLN EXT DAILY Clonazepam (Klonopin), 1.5 MG PO HS Denosumab (Prolia), 1 DOSE INJ [id number] Diclofenac (Voltaren), 75 MG PO BID Famotidine (Pepcid), 20 MG PO BID Furosemide (Lasix), 10 MG PO DAILY Furosemide (Lasix), 20 MG PO Q2D Levocetirizine Dihydrochloride (Xyzal), 5 MG PO HS Melatonin (Melatonin Maximum Strengt), 5-10 MG PO HS Montelukast Sodium (Singulair), 10 MG PO QDD Omeprazole (Prilosec), 2 TAB PO QDD Probiotic Product (Probiotic), 1 CAP PO TID Silodosin (Rapaflo), 8 MG PO QPM Varenicline (Chantix), 1 MG PO BID Zolpidem Tartrate (Ambien), 10 MG PO HS [Nasonex], 1-2 SPRAY KEELEY DAILY Scheduled PRN Benzonatate (Tessalon Perles), 200 MG PO TID PRN for Cough Colchicine (Colchicine), 0.6 MG PO DAILY PRN for gout flare Dicyclomine Hcl (Bentyl), 10 MG PO QID PRN for Pain Fluticasone Furoate-Vilanterol (Breo Ellipta), 1 PUFF INH DAILY PRN for SOB/ Wheezing Levalbuterol Tartrate (Levalbuterol Tartrate Hfa), 2 PUFF INH QID PRN for SOB/ Wheezing Menthol (Topical Analgesic) (Biofreeze), 1 APPLN TD BID PRN for Pain Ondansetron Hcl (Zofran), 4 MG PO Q4H PRN for Nausea Oxycodone/Acetaminophen 5MG/325MG (Percocet 5MG/325MG), 1-2 TABLETS PO QID PRN for Pain Tramadol HCl (Tramadol HCl), 100 MG PO TID PRN for Pain Triamcinolone Acet (Triamcinolone Acetonide), 1 APPLN TOP BID PRN for Itching Valacyclovir Hcl (Valtrex), 2 TABS PO Q12 PRN for FLARES Allergies Coded Allergies: Dantrolene (Verified Allergy, Severe, SHORT BREATH, VOMITING, 08/13/17) Ranitidine (Verified Allergy, Severe, nausea, sob, 08/13/17) Camphor (Verified Allergy, Intermediate, RASH, 08/13/17) Menthol (Verified Allergy, Intermediate, RASH, 08/13/17) Metronidazole (Verified Allergy, Intermediate, GI SYMPTOMS, 08/13/17) patien states " I can take IV Flagyl " Phenol (Verified Allergy, Intermediate, RASH, 08/13/17) Etodolac (Verified Allergy, Mild, ?, 08/13/17) Formoterol (Verified Allergy, Mild, THRUSH, RASH, 08/13/17) Thrush and Rash Indomethacin (Verified Allergy, Mild, RASH, 08/13/17) Metoclopramide (Verified Allergy, Mild, ?, 08/13/17) Mometasone (Verified Allergy, Mild, THRUSH, RASH, 08/13/17) Thrush and Rash Morphine (Verified Allergy, Mild, `, 08/13/17) Nortriptyline (Verified Allergy, Mild, ?, 08/13/17) Tamoxifen (Verified Allergy, Mild, ?, 08/13/17) Acellular Pertussis (Verified Allergy, Unknown, `, 08/13/17) Albuterol (Verified Allergy, Unknown, `, 08/13/17) Aluminum Phosphate (Verified Allergy, Unknown, `, 08/13/17) Anastrozole (Verified Allergy, Unknown, ?, 08/13/17) Baclofen (Verified Allergy, Unknown, unknown, 08/13/17) Carisoprodol (Verified Allergy, Unknown, `, 08/13/17) Celecoxib (Verified Allergy, Unknown, unknown, 08/13/17) Cephalexin (Verified Allergy, Unknown, unknown, 08/13/17) Cephalosporins (Verified Allergy, Unknown, ?, 08/13/17) Clarithromycin (Verified Allergy, Unknown, ?, 08/13/17) Cyclobenzaprine (Verified Allergy, Unknown, `, 08/13/17) Desipramine (Verified Allergy, Unknown, `, 08/13/17) Diphtheria Toxoid (Verified Allergy, Unknown, `, 08/13/17) Doxycycline (Verified Allergy, Unknown, unknown, 08/13/17) Gabapentin (Verified Allergy, Unknown, unknown, 08/13/17) Guaifenesin (Verified Allergy, Unknown, `, 08/13/17) Hydrocodone (Verified Allergy, Unknown, ?, 08/13/17) Hydromorphone (Verified Allergy, Unknown, UNKNOWN, 08/13/17) Letrozole (Verified Allergy, Unknown, `, 08/13/17) Methocarbamol (Verified Allergy, Unknown, ?, 08/13/17) Mirtazapine (Verified Allergy, Unknown, unknown, 08/13/17) Naproxen (Verified Allergy, Unknown, `, 08/13/17) Penicillins (Verified Allergy, Unknown, UNKNOWN, 08/13/17) Phenoxyethanol (Verified Allergy, Unknown, `, 08/13/17) Phenylpropanolamine (Verified Allergy, Unknown, `, 08/13/17) Pseudoephedrine (Verified Allergy, Unknown, ?, 08/13/17) Quetiapine (Verified Allergy, Unknown, unknown, 08/13/17) Sulfa Antibiotics (Verified Allergy, Unknown, `, 08/13/17) Sulfamethoxazole w/Trimethoprim (Verified Allergy, Unknown, unknown, ) Sympathomimetics (Verified Allergy, Unknown, `, 08/13/17) Terazosin (Verified Allergy, Unknown, `, 08/13/17) Tetanus Toxoid (Verified Allergy, Unknown, `, 08/13/17) Trazodone (Verified Allergy, Unknown, `, 08/13/17) Triamterene (Verified Allergy, Unknown, ?, 08/13/17) Vilazodone (Verified Allergy, Unknown, `, 08/13/17) Yellow Dye (Verified Allergy, Unknown, UNSURE, 08/13/17) Temazepam (Verified Adverse Reaction, Severe, STRANGE DREAMS, 08/13/17) Hydrochlorothiazide (Verified Adverse Reaction, Intermediate, GOUT, ) Hydrochlorothiazide w/Triamterene (Verified Adverse Reaction, Intermediate , GOUT, 08/13/17) Levomilnacipran (Verified Adverse Reaction, Intermediate, CONFUSION, ) Confused Ascorbate (Verified Adverse Reaction, Mild, DIARRHEA, 08/13/17) diarrhea Biotin (Verified Adverse Reaction, Mild, DIARRHEA, 08/13/17) Calcium (Verified Adverse Reaction, Mild, DIARRHEA, 08/13/17) diarrhea Copper (Verified Adverse Reaction, Mild, DIARRHEA, 08/13/17) diarrhea Folic Acid (Verified Adverse Reaction, Mild, DIARRHEA, 08/13/17) Diarrhea Iron (Verified Adverse Reaction, Mild, DIARRHEA, 08/13/17) diarrhea Niacinamide (Verified Adverse Reaction, Mild, DIARRHEA, 08/13/17) diarrhea Pantothenic Acid (Verified Adverse Reaction, Mild, DIARRHEA, 08/13/17) Pregabalin (Verified Adverse Reaction, Mild, DIARRHEA, 08/13/17) Diarrhea Pyridoxine (Verified Adverse Reaction, Mild, DIARRHEA, 08/13/17) diarrhea Riboflavin (Verified Adverse Reaction, Mild, DIARRHEA, 08/13/17) diarrhea Thiamine (Verified Adverse Reaction, Mild, DIARRHEA, 08/13/17) diarrhea Toremifene (Verified Adverse Reaction, Mild, COLD SORE, VAGINAL DISCHARGE , 08/13/17) Cold Sore and Vaginal Discharge Vitamin A (Verified Adverse Reaction, Mild, DIARRHEA, 08/13/17) diarrhea Vitamin B12 (Verified Adverse Reaction, Mild, DIARRHEA, 08/13/17) diarrhea Vitamin D (Verified Adverse Reaction, Mild, DIARRHEA, 08/13/17) diarrhea Vitamin E (Verified Adverse Reaction, Mild, DIARRHEA, 08/13/17) diarrhea Zinc (Verified Adverse Reaction, Mild, DIARRHEA, 08/13/17) diarrhea Bupropion (Verified Adverse Reaction, Unknown, VOMIT, 08/13/17) Hydroxychloroquine (Verified Adverse Reaction, Unknown, GI SYMPTOMS, ) Tizanidine (Verified Adverse Reaction, Unknown, RINGING,BLACKOUT, 08/13/17) Physical Exam Vital Signs Date Time Temp Pulse Resp B/P (MAP) Pulse Ox O2 Delivery O2 Flow Rate FiO2 08/13/17 14:41 87 16 95 Room Air 08/13/17 10:58 37.1 91 16 207/108 95 Physical Exam GENERAL: Patient is a healthy-appearing well-nourished female. Tearful on exam. HEAD: Normocephalic atraumatic EYES: Ocular movements intact pupils equal and react to light OROPHARYNX mucous membranes are moist no exudates present no erythema or edema present NECK: Supple no nuchal rigidity CHEST: Good equal expansion LUNGS: Clear and equal to auscultation CARDIAC: Normal S1 and S2 ABDOMEN: Soft nontender no guarding BACK: No CVA tenderness EXTREMITIES: No pain upon palpation normal muscle strength in all groups no clubbing cyanosis or edema NEURO: Patient is following commands and answering questions appropriately. Alert and oriented x3 Cranial Nerves 2-12 grossly intact Medical Decision & Procedures Laboratory Results 08/13/17 11:18 Red Blood Count 4.73, Mean Corpuscular Volume 94.1, Mean Corpuscular Hemoglobin 32.3, Mean Corpuscular Hemoglobin Concent 34.4, Mean Platelet Volume 10.9, Neutrophils (%) (Auto) 44.5, Lymphocytes (%) (Auto) 48.7, Monocytes (%) (Auto) 4.5, Eosinophils (%) (Auto) 1.8, Basophils (%) (Auto) 0.4, Neutrophils # (Auto) 3.50, Lymphocytes # (Auto) 3.83, Monocytes # (Auto) 0.35, Eosinophils # (Auto) 0.14, Basophils # (Auto) 0.03 08/13/17 11:18 Test 08/13/17 11:18 08/13/17 11:20 08/13/17 11:30 White Blood Count 7.86 K/uL (4.8-10.8) Red Blood Count 4.73 M/uL (4.2-5.4) Hemoglobin 15.3 g/dL (12.0-16.0) Hematocrit 44.5 % (37-47) Mean Corpuscular Volume 94.1 fL (80-100) Mean Corpuscular Hemoglobin 32.3 pg (25-34) Mean Corpuscular Hemoglobin Concent 34.4 g/dl (32-36) Platelet Count 252 K/uL (130-400) Mean Platelet Volume 10.9 fL (7.4-10.4) Neutrophils (%) (Auto) 44.5 % Lymphocytes (%) (Auto) 48.7 % Monocytes (%) (Auto) 4.5 % Eosinophils (%) (Auto) 1.8 % Basophils (%) (Auto) 0.4 % Neutrophils # (Auto) 3.50 K/uL (1.4-6.5) Lymphocytes # (Auto) 3.83 K/uL (1.2-3.4) Monocytes # (Auto) 0.35 K/uL (0.11-0.59) Eosinophils # (Auto) 0.14 K/uL (0-0.5) Basophils # (Auto) 0.03 K/uL (0-0.2) RDW Standard Deviation 48.4 fL (36.4-46.3) RDW Coefficient of Variation 14.2 % (11.5-14.5) Immature Granulocyte % (Auto) 0.1 % Immature Granulocyte # (Auto) 0.01 K/uL (0.00-0.02) Anion Gap 8.0 mmol/L (3-11) Est Creatinine Clear Calc Drug Dose 52.6 ml/min Estimated GFR () 69.7 Estimated GFR (Non- 60.2 BUN/Creatinine Ratio 28.0 (10-20) Calcium Level 9.0 mg/dl (8.5-10.1) Total Bilirubin 0.4 mg/dl (0.2-1) Direct Bilirubin < 0.1 mg/dl (0-0.2) Aspartate Amino Transf (AST/SGOT) 21 U/L (15-37) Alanine Aminotransferase (ALT/SGPT) 45 U/L (12-78) Alkaline Phosphatase 140 U/L (45-117) Total Protein 7.6 gm/dl (6.4-8.2) Albumin 3.9 gm/dl (3.4-5.0) Thyroid Stimulating Hormone (TSH) 1.630 uIu/ml (0.300-4.500) Ethyl Alcohol mg/dL < 3.0 mg/dl (0-3) Bedside Glucose 116 mg/dl (70-90) Urine Color YELLOW Urine Appearance CLEAR (CLEAR) Urine pH 5.0 (4.5-7.5) Urine Specific [place] 1.018 (1.000-1.030) Urine Protein NEG (NEG) Urine Glucose (UA) NEG (NEG) Urine Ketones NEG (NEG) Urine Occult Blood NEG (NEG) Urine Nitrite NEG (NEG) Urine Bilirubin NEG (NEG) Urine Urobilinogen NEG (NEG) Urine Leukocyte Esterase NEG (NEG) Urine Opiates Screen NEG (NEG) Urine Methadone, Qualitative NEG (NEG) Urine Barbiturates NEG (NEG) Urine Phencyclidine (PCP) Level NEG (NEG) Ur Amphetamine/Methamphetamine NEG (NEG) MDMA (Ecstasy) Screen NEG (NEG) Urine Benzodiazepines Screen NEG (NEG) Urine Cocaine Metabolite NEG (NEG) Urine Marijuana (THC) NEG (NEG) Labs reviewed by ED physician. Medications Administered Medications (Trade) Dose Ordered Sig/Tea Route Start Time Stop Time Status Last Admin Dose Admin Lorazepam (Ativan Tab) 1 mg NOW STAT SL 08/13/17 11:16 08/13/17 11:17 DC 08/13/17 11:57 1 MG Hydroxyzine HCl (Vistaril Tab) 50 mg HSZ PRN PO 08/13/17 15:00 09/12/17 14:59 08/14/17 01:36 50 MG ED Course 1103: Past medical records reviewed. The patient was evaluated in room A6. A complete history and physical examination was performed. Medical Decision Differential diagnosis: Etiologies such as mood disorder, infection, hypoglycemia, electrolyte abnormalities, cardiac sources, intracerebral event, toxicologic, neurologic, as well as others were entertained. This is a 57-year-old who presents emergency department feeling suicidal and believe she is hopeless to change her situation. She is medically cleared by me. The case was discussed with 3 S. liaison who admitted the patient. Patient was in agreement with the treatment plan. Impression Primary Impression: Mood disorder Scribe Attestation The scribe's documentation has been prepared under my direction and personally reviewed by me in its entirety. I confirm that the note above accurately reflects all work, treatment, procedures, and medical decision making performed by me. Departure Information Dispostion Home / Self-Care Referrals No Doctor, Assigned (PCP) Patient Instructions My [facility]
[2017-08-13 11:38] LABS: BASO % 0.4 %; BASO ABS # 0.03 K/uL (0-0.2); EOS % 1.8 %; EOS ABS # 0.14 K/uL (0-0.5); HEMATOCRIT 44.5 % (37-47); HEMOGLOBIN 15.3 g/dL (12.0-16.0); IG# 0.01 K/uL (0.00-0.02); LYMPH % 48.7 %; LYMPH ABS # 3.83 K/uL (1.2-3.4); MEAN CELL VOLUME 94.1 fL (80-100); MEAN CORPUSCULAR HEMOGLOBIN 32.3 pg (25-34); MEAN CORPUSCULAR HGB CONC 34.4 g/dl (32-36); MEAN PLATELET VOLUME 10.9 fL (7.4-10.4); MONO % 4.5 %; MONO ABS # 0.35 K/uL (0.11-0.59); NEUT % 44.5 %; PLATELET COUNT 252 K/uL (130-400); RED CELL DISTRIBUTION WIDTH CV 14.2 % (11.5-14.5); RED CELL DISTRIBUTION WIDTH SD 48.4 fL (36.4-46.3); WHITE BLOOD COUNT 7.86 K/uL (4.8-10.8)
[2017-08-13 11:56] LABS: ALBUMIN 3.9 gm/dl (3.4-5.0); ALT/SGPT 45 U/L (12-78); AST/SGOT 21 U/L (15-37); BLOOD UREA NITROGEN 29 mg/dl (7-18); CARBON DIOXIDE 24 mmol/L (21-32); CREATININE 1.02 mg/dl (0.60-1.20); GLUCOSE 118 mg/dl (70-99); POTASSIUM 3.5 mmol/L (3.5-5.1); SODIUM 139 mmol/L (136-145)
[2017-08-13 12:07] LABS: ALKALINE PHOSPHATASE 140 U/L (45-117); TOTAL PROTEIN 7.6 gm/dl (6.4-8.2)
[2017-08-13] MEDS ORDERED: DICL-201 PO (12:18)
[2017-08-13] MEDS ORDERED: CHOL1TAB53 PO (12:18)
[2017-08-13] MEDS ORDERED: BENZ1CAP90 PO (12:18)
[2017-08-13] MEDS ORDERED: DICY10CA55 PO (12:18)
[2017-08-13] MEDS ORDERED: META1TAB22 PO (12:18)
[2017-08-13] MEDS ORDERED: COLC1TAB25 PO (12:18)
[2017-08-13] MEDS ORDERED: CHOL100041 (12:18)
[2017-08-13] MEDS ORDERED: SYMIN/8045 INH (12:18)
[2017-08-13] MEDS ORDERED: MENT4GEL TOP (12:18)
[2017-08-13] MEDS ORDERED: ZOLP10TA PO (12:18)
[2017-08-13] MEDS ORDERED: LEVA45AE INH (12:19)
[2017-08-13] MEDS ORDERED: TRMO115 TOP (12:19)
[2017-08-13] MEDS ORDERED: FURO-85 PO (12:19)
[2017-08-13 14:41] VITALS: O2SAT 95
[2017-08-13] MEDS ORDERED: TRAMADOL HCL 50 MG TAB PO PRN (15:00)
[2017-08-13] MEDS ORDERED: ALUMINUM/MAGNESIUM SUSP 30 ML UDC PO PRN (15:00)
[2017-08-13] MEDS ORDERED: SODIUM CHLORIDE 0.65% NA SOLN 45 ML (OCEAN) PRN (15:00)
[2017-08-13] MEDS ORDERED: DICYCLOMINE HCL 10 MG CAP PO PRN (15:00)
[2017-08-13] MEDS ORDERED: ACETAMINOPHEN 325 MG TAB PO PRN (15:00)
[2017-08-13] MEDS ORDERED: ONDANSETRON 4 MG TAB PO PRN (15:00)
[2017-08-13] MEDS ORDERED: MAGNESIUM HYDROXIDE SUSP 30 ML UDC PO PRN (15:00)
[2017-08-13] MEDS ORDERED: LEValbuterol HFA 15GM INHALER INH PRN (15:00)
[2017-08-13] MEDS ORDERED: hydrOXYzine HCL 25 MG TAB PO PRN (15:00)
[2017-08-13] MEDS ORDERED: BISMUTH SUBSALICYLATE PER ML OMNICELL CHARGE PO PRN (15:00)
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
[2017-08-13 18:12] VITALS: BP 110/58; PULSE 65; TEMP 37.1; Ht 157.5 cm; Wt 65.0 kg
[2017-08-13] MEDS ORDERED: NURSING VERBAL MED ORDER ONE ×2 (18:45)
[2017-08-13] MEDS ORDERED: CHOL200027 PO (18:48)
[2017-08-13] MEDS: ALLOPURINOL 100 MG TAB PO SCH (20:07)
[2017-08-13] MEDS: MONTELUKAST SOD 10 MG TAB PO SCH (20:07)
[2017-08-13] MEDS: TRAMADOL HCL 50 MG TAB PO PRN (20:11)
[2017-08-13] MEDS ORDERED: CHLORZOXAZONE 500 MG TAB PO SCH (21:00)
[2017-08-13] MEDS ORDERED: TRIAMCINOLONE ACET 0.1% OINT 15 GM TUBE TOP SCH (21:00)
[2017-08-13] MEDS ORDERED: LACTOBACILLUS ACIDOPHILUS (FLORANEX) TAB PO SCH (21:00)
[2017-08-13] MEDS ORDERED: TRIAMCINOLONE ACET 0.1% OINT 15 GM TUBE TOP PRN (21:00)
[2017-08-13] MEDS ORDERED: DICLOFENAC SOD EC 75 MG TABCR PO SCH (21:00)
[2017-08-13] MEDS ORDERED: ZOLPIDEM TARTRATE 10 MG TAB PO SCH (21:00)
[2017-08-13] MEDS ORDERED: BENZONATATE 100MG CAP PO SCH (21:00)
[2017-08-13] MEDS ORDERED: MONTELUKAST SOD 10 MG TAB PO SCH (21:00)
[2017-08-13] MEDS ORDERED: BENZONATATE 100MG CAP PO PRN (21:00)
[2017-08-13] MEDS: BUDESONIDE/FORMOTEROL FUMARATE 80/4.5 60 PUFFS/INHALER INH SCH (21:06)
[2017-08-13] MEDS: FAMOTIDINE 20 MG TAB PO SCH (21:07)
[2017-08-13] MEDS: METAXALONE 800 MG TAB PO SCH (21:07)
[2017-08-13] MEDS: CHOLECALCIFEROL 1000 INTER.UNIT TAB PO SCH (21:07)
[2017-08-13] MEDS: CLONAZEPAM 0.5 MG TAB PO SCH (21:07)
[2017-08-14] MEDS: TRAMADOL HCL 50 MG TAB PO PRN ×2 (00:20→22:26)
[2017-08-14] MEDS: hydrOXYzine HCL 25 MG TAB PO PRN ×3 (00:20→22:26)
[2017-08-14 06:36] VITALS: BP_SYST 138; BP_SYST 166; BP_DIAS 83; BP_DIAS 99; PULSE 66; PULSE 79; TEMP 36.3
[2017-08-14] MEDS ORDERED: PANTOprazole SOD 40 MG TAB PO SCH (09:00)
[2017-08-14] MEDS ORDERED: FUROSEMIDE 20 MG TAB PO SCH (09:00)
[2017-08-14] MEDS: CHOLECALCIFEROL 1000 INTER.UNIT TAB PO SCH ×3 (09:00→22:08)
[2017-08-14] MEDS: BUDESONIDE/FORMOTEROL FUMARATE 80/4.5 60 PUFFS/INHALER INH SCH ×2 (09:00→22:08)
[2017-08-14] MEDS ORDERED: ALLOPURINOL 100 MG TAB PO SCH (09:00)
[2017-08-14] MEDS: COLCHICINE 0.6 MG TAB PO SCH ×2 (09:00→10:21)
[2017-08-14] MEDS: FUROSEMIDE 20 MG TAB PO SCH (10:22)
[2017-08-14] MEDS: METAXALONE 800 MG TAB PO SCH ×2 (10:22→22:08)
[2017-08-14] MEDS: FAMOTIDINE 20 MG TAB PO SCH ×2 (10:22→22:07)
[2017-08-14] MEDS: ASCORBIC ACID 500 MG TAB PO SCH (10:22)
[2017-08-14] MEDS: DICLOFENAC SOD EC 75 MG TABCR PO PRN ×2 (11:33→19:17)
--- NOTE | 2017-08-14 12:48 | Psychiatric Progress Notes ---
Progress Note Date of Service Aug 14, 2017. Interval History Niranjan Sr, who goes by "October," is a 57-year-old female who goes by "October," lives in [place], and was admitted on August 13, 2017 after she presented to the emergency room with suicidal ideation. She lives alone in [place], follows with Dr. Lambert at the [facility] psychiatric clinic, and was admitted on a 201 voluntary commitment. Chief Complaint "I need to get at least 12 hours of sleep ". Subjective Patient was seen & assessed interval progress reviewed with staff, who report that she frequently approaches staffed with requests and multiple needs, and has given conflicting reports about her medications, with many requests/ complaints about the medications that are ordered. She told nursing staff last night that she does not take Voltaren, so it was discontinued, but this morning is complaining that she is in pain and blaming staff for not giving her that same medication. She was also upset when informed that her zolpidem had been discontinued, which was discussed yesterday as she reported it was ineffective, and she reported memory problems. She came out of her room last night to let the nurses know that she was not sleeping well, and received 2 doses of hydroxyzine. This morning, the patient was seen in her room, where she is just getting up around 11 AM, seated on her bed eating breakfast. She states that she missed breakfast and all of the groups this morning as she slept in, due to not going to seep until around 3 AM last night. Again reviewed her sleep disturbance and the multiple sleep medications she has tried, as well as the rationale for discontinuing zolpidem. After much discussion about options for targeting sleep, she states that she believes her sleep has been poor recently due to "all of the stress with my food service director." She has not yet thought of a plan for how she wants to address this while here, but after some discussion, agrees to have a meeting with her blended case hardener Jaqui and her food service director Sadia. She wants Jaqui to help her find a new food service director, which she says would entail going online and reading reviews of the different companies, and then setting up new services. She was encouraged to work on an interim plan so that she can have her needs met at the time that she is discharged from the hospital. She states that her primary stress is the lack of good in-home services, and thinks her mood has improved here simply because she is away from the stressor and from her house, which she describes as being very messy currently due to a lack of cleaning. She continues to endorse memory difficulties, and again discussed my concerns with polypharmacy and that she is on numerous centrally acting medications that can impair cognition. Additionally discussed Chantix, as she reports being on it for over a year, and concerns that this may be contributing to her mood symptoms. Sleep Information Total Hours of Sleep: 5.75 Meal Information Percent of Breakfast Consumed: 75 Percent of Dinner Consumed: 75 Mental Status Exam During interview pt is: alert and oriented, cooperative Appearance: other (Wearing pajamas and a bathrobe, seated on the edge of her bed eating breakfast) Eye contact is: fair Motor behavior is: no abnormal motor movements Speech: other ([place] productive, slowed) Affect: other (Stable, blunted with an irritable edge) Mood is: other ("More at peace here") Thought process: circumstantial (Requires frequent redirection) Thought content: cognitive distortions Suicidal thought are: denied Homicidal thoughts are: denied Hallucinations: denies auditory, denies visual Cognition: language grossly intact, other (Memory and attention impaired) Intelligence estimated to be: average Insight: impaired Judgement: impaired Impression 57 year old female with a self reported history of depression and PTSD who presents with worsening mood and suicidal thoughts in the context of stress with her in home service providers. She is not taking antidepressants as she says she can't tolerate them, has not been adherent to therapy or psychiatric appointments, and is on an impressive number of medications for various health issues, some of which may be exacerbating her mood, anxiety and cognitive symptoms. She requires inpatient treatment due the risk of suicide if discharged. We are adjusting her medications and attempting to remove agents that are causing side effects or have not been effective for their intended purpose. She will need a meeting with her outpatient supports to work on a plan for reinstating appropriate in-home services prior to discharge. 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 Plan (1) GOUT NOS Continue home dose of colchicine prn (2) Depression -Admitted to the behavioral health unit with 15 minute checks for safety. -Attend groups and therapy on the unit, work on healthy coping skills and a discharge safety plan. -Recommend family meeting, possibly with her case hardener, to discuss stressors with her in-home services and explore options. -Continue home dose of clonazepam, but discontinue zolpidem, as patient states it is no longer effective and to decrease polypharmacy. -Get records from Dr. Lambert, and contact her to explore antidepressant or other medication options. -Pt states she made an appointment at [place] and is planning to switch providers , as it is closer - 08/21. 08/14 -Phone call placed to the [facility] to discuss medication trials. The patient remains resistant to trying another antidepressant, citing her very long allergy list and history of poorly defined "bad reactions" to numerous medications. It would also be helpful to review the records to clarify diagnosis, specifically Meridian II. -Encourage the patient to be up and out of bed during the day, actively participating in treatment, attending groups and therapy. She would benefit from working on coping skills and behavioral techniques for managing her symptoms. -Schedule family meeting with blended case hardener and food service director. Explore ways to improve her compliance with therapy and outpatient appointments. (3) Fibromyalgia Initial med rec incorrect - clarified with OP med list - not currently prescribed chlorzoxazone (caused hallucinations) and states she is not currently taking Skelaxin. Hold Percocet due to concurrent benzo use and her reports of cognitive dysfunction. Continue tramadol; per PDMP last Percocet prescription was filled July 03, 2017 and was only for 8 days, and last tramadol prescription was for 10 days June 30, 2017. Continue reported home dose of Voltaren 75 mg twice daily prn. 08/14 -encouraged until movement/exercise, and to be out of bed during the day. (4) Polypharmacy Reviewed all medications and outpatient med list and prescription history. We are attempting to eliminate medications that are likely to be contributing to her current symptoms and cognitive dysfunction. Chantix discontinued as she has been taking it for a year, and patient advised that this is beyond the recommended duration of treatment, and that there is a risk it could exacerbate mood symptoms. Zolpidem discontinued as patient reports it is not effective and it she is on multiple centrally acting medications, likely contributing to her memory problems. (5) Hypertension Continue home dose of furosemide and monitor blood pressure. (6) Asthma Continue home regimen of Symbicort inhaler, Tessalon Perles, fluticasone- vilanterol inhaler, albuterol inhaler, and Singulair. (7) ESOPHAGEAL REFLUX Continue home dose of Pepcid. Discharge / Aftercare Planning Primary Care Physician: Name: Dr Joya [facility] Psychiatrist: Name: Dr. Lambert, [facility] Therapist: Name: Janette [facility] Blocking Machine Operator Second: Name: Adelaida DillardABBY Visit Code E&M Code: 99822 Inventory Assets Strengths: has service waiver and OP providers Needs: med rec, antidepressant therapy, better adherence (hasn't gone to appts in 2 mos ), psychoeducation, prioritizing her mental health Risk Factors Assessment : No /single/: Yes Higher / Fall in social status: No Health problems: Yes Mental Health Diagnoses: Yes Substance use disorders: No Previous attempt: Yes Family history of suicide: No Previous psychiatric stay: Yes Hopelessness: Yes Smoker: No Protective Factors Assessment : No Responsible for young children: No Employed: No Stable relationships: No Supportive family: No Good rapport with provider: Yes Data Vital Signs Last 24 Hrs: Date Time Temp Pulse Resp B/P (MAP) Pulse Ox O2 Delivery O2 Flow Rate FiO2 08/14/17 06:36 36.3 66 20 138/83 79 166/99 08/13/17 18:12 37.1 65 18 110/58 08/13/17 15:42 18 08/13/17 15:21 110/58 08/13/17 14:41 87 16 95 Room Air Meds Administered Last 24 Hrs: Meds Administered (Past 24Hrs) Medications (Trade) Dose Ordered Sig/Tea Route Start Time Stop Time Status Last Admin Dose Admin Lorazepam (Ativan Tab) 1 mg NOW STAT SL 08/13/17 11:16 08/13/17 11:17 DC 08/13/17 11:57 1 MG Hydroxyzine HCl (Vistaril Tab) 50 mg HSZ PRN PO 08/13/17 15:00 09/12/17 14:59 08/14/17 01:36 50 MG Budesonide/ Formoterol Fumarate (Symbicort 80/ 4.5 Inh) 2 puffs BID INH 08/13/17 21:00 3/16/18 20:59 08/13/17 21:06 2 PUFFS Cholecalciferol (Vitamin D Tab) 1,000 inter.unit BID PO 08/13/17 21:00 09/12/17 20:59 08/13/17 21:07 1,000 INTER.UNIT Clonazepam (Klonopin Tab) 1.5 mg HS PO 08/13/17 22:00 09/12/17 21:59 08/13/17 21:07 1.5 MG Famotidine (Pepcid Tab) 20 mg BID PO 08/13/17 21:00 09/12/17 20:59 08/14/17 10:22 20 MG Furosemide (Lasix Tab) 10 mg DAILY PO 08/14/17 09:00 09/13/17 08:59 08/14/17 10:22 10 MG Metaxalone (Skelaxin Tab) 800 mg BID PO 08/13/17 21:00 09/12/17 20:59 08/14/17 10:22 800 MG Ascorbic Acid (Vitamin C Tab) 500 mg QAM PO 08/14/17 09:00 09/13/17 08:59 08/14/17 10:22 500 MG Tramadol HCl (Ultram Tab) 100 mg Q4H PRN PO 08/13/17 16:45 09/12/17 16:44 08/14/17 00:20 100 MG Allopurinol (Zyloprim Tab) 300 mg DAILY@1800 PO 08/14/17 18:00 09/13/17 17:59 08/13/17 20:07 300 MG Montelukast Sodium (Singulair Tab) 10 mg DAILY@1800 PO 08/14/17 18:00 09/13/17 17:59 08/13/17 20:07 10 MG Omeprazole (Prilosec - Substitute) 40 mg DAILY@1700 PO 08/14/17 17:00 09/13/17 16:59 08/13/17 20:03 40 MG Diclofenac Sodium (Voltaren Tab) 75 mg BID PRN PO 08/14/17 10:30 09/13/17 10:29 08/14/17 11:33 75 MG
--- NOTE | 2017-08-14 13:20 | Medical Student: BHU Only ---
Psychiatric Progress Note 57 year old female admitted by 201 following complaints of worsening depression and suicidal ideations. I discussed Dior's care with Dr. Lambert, her outpatient psychiatrist. Dr. Lambert stated that Dior as seen multiple psychiatrists and other physicians over the years and the two diagnoses that she has been working with are PTSD and a personality disorder. Dior has been given the diagnosis of avoidant, borderline, and some other personality disorders over the years. While Dr. Lambert is not sure which personality disorder she actually has, she does strongly agree with that diagnosis. Dr. Lambert states that most of Dior's visits over the last year have been supportive therapy visits rather than medication visits. Dior often comes into the office crying and distressed about something that another person did, often her son. Dr. Lambert has noticed that most of her difficulties and stressors involve interactions with other people. When she first started seeing Dior in November of 2014, Dior was taking Zoloft and had been taking it for many years. She continued to take Zoloft until July of 2015 and stopped taking it then because she did not feel that it was working. Then she was not taking any antidepressant until April of [address] Lambert started her on Prozac. 10 days after starting Prozac, Dior reported feeling increasingly depressed, did not want to get out of bed, and was experiencing suicidal ideations. She stopped taking Prozac and 3 days later she reported feeling increased energy and overall much more positive. She has not been on an antidepressant since then. She is unsure what other antidepressants have been tried in the past as Dior as seen many different providers. Dr. Lambert expressed that looking at her past notes, she does not believe that antidepressant therapy is the best treatment for her. She stated that she feels that Dior is not depressed, rather this is a manifestation of her Personality Disorder. Dr. Lambert has had multiple discussions with Dior over that past year, indicating to her that therapy might be the best treatment for her rather than a medication. Dr. Lambert stated that Dior is particular about her therapist and wants someone who would be willing to see her 2 hours at a time. She stated that she set up May with weekly appointments with a therapist but May has been canceling many of her appointments. At this point, Dr. Lambert has told Dior that if she does not participate in her treatment plan for therapy, Dr. Lambert will not be able to see her in the future. Dr. Lambert has not seen her sine Apr 2017 and she has been attending therapy sporadically in since then. Last appointment attended was in June 2017. Dr. Lambert did say that she is unsure whether of or May has tried Prazosin but that might be something to try next if medication is part of the treatment plan. Dr. Lambert' office will be faxing over all their records today so we can get the medication list that she has. Furthermore, Patient stated today that she has an appointment with her Ostomy Nurse in [place] on Friday, August 18, 2017. She does not want to miss this appointment and thus is signing a 72 notice to leave Against Medical Advice. Additionally, due to complaints of confusion and memory difficulties, MOCA was administered. She got increasingly frustrated throughout the exam and kept repeating "I don't understand why you need to do this". She states that she has a known, "neurologist-diagnosed memory problem". [place] Cognitive Assessment (MOCA) Total score: 20/30 Areas where points were missed: received 0/3 points in language (repetition and fluency) received 1/2 point in abstraction received 0/5 points for delayed recall received 5/6 points for orientation. Date of Service: Aug 14, 2017.
[2017-08-14] MEDS: MONTELUKAST SOD 10 MG TAB PO SCH (18:46)
[2017-08-14] MEDS: ALLOPURINOL 100 MG TAB PO SCH (18:46)
[2017-08-14] MEDS: SILODOSIN 8 MG CAP PO SCH (19:13)
[2017-08-14] MEDS: LEVOCETIRIZINE 5 MG TABLET PO SCH (22:07)
[2017-08-14] MEDS: CLONAZEPAM 0.5 MG TAB PO SCH (22:07)
[2017-08-15 06:26] VITALS: BP_SYST 152; BP_SYST 163; BP_DIAS 89; BP_DIAS 92; PULSE 65; PULSE 76; TEMP 36.9
[2017-08-15] MEDS: CHOLECALCIFEROL 1000 INTER.UNIT TAB PO SCH ×6 (09:00→22:27)
[2017-08-15] MEDS: BUDESONIDE/FORMOTEROL FUMARATE 80/4.5 60 PUFFS/INHALER INH SCH ×3 (09:00→22:00)
[2017-08-15] MEDS: FUROSEMIDE 20 MG TAB PO SCH (09:36)
[2017-08-15] MEDS: FAMOTIDINE 20 MG TAB PO SCH ×2 (09:36→22:26)
[2017-08-15] MEDS: METAXALONE 800 MG TAB PO SCH ×2 (09:37→22:26)
[2017-08-15] MEDS: ASCORBIC ACID 500 MG TAB PO SCH (09:37)
--- NOTE | 2017-08-15 10:34 | Psychiatric Progress Notes ---
Progress Note Date of Service Aug 15, 2017. Interval History Niranjan Sr, who goes by "October," is a 57-year-old female who goes by "October," lives in [place], and was admitted on August 13, 2017 after she presented to the emergency room with suicidal ideation. She lives alone in [place], follows with Dr. Lambert at the [facility] psychiatric clinic, and was admitted on a 201 voluntary commitment. Chief Complaint "I'm feeling a lot better here". Subjective Patient was seen & assessed interval progress reviewed with Treatment Team. Staff reports patient has been doing well, reporting herself a "9 and great". She has a meeting with her case management assistant scheduled for today and a meeting with her brother for tomorrow. Staff states the patient's home medications were brought in and sorted; stating she had a considerable number of excess pills in bottles. Pt was seen today to assess progress since admission. Pt states, "I' m a lot better, I've made friends here". The patient reviewed with this provider her personal history and states that she feels much better after being removed from her current living situation. She states she is hoping her case management assistant will be able to find a new food and beverage service manager for her so as to improve the state of her home. Pt states she is currently on her third food and beverage service manager and is filed a complaint to the Department of Human Services about the care she has been receiving. Reviewed risk of respiratory depression with benzo use and recommended reducing her bedtime dose of Klonopin as she is currently on 02 as well. Pt was agreeable to this, "as long as it doesn't make my pain worse". She states she was switched to Klonopin from Ativan upon recommendation from her pain management provider. She states she has been tapering from an initial dose of 2.5mg, but she is agreeable to a lower dose. We discussed that Vistaril would still be available to her if she was having difficulty sleeping. Pt denies SI/HI, and A/V hallucinations at this encounter. She denies any concerns or needs today. Review of Systems Psych: denies symptoms other than stated above Constitutional: denied Cardiovascular: denied GI: denied Neurologic: denied Remainder of 10 body systems also reviewed and denied other than noted above. Sleep Information Total Hours of Sleep: 5.00 Meal Information Percent of Breakfast Consumed: 75 Percent of Lunch Consumed: 75 Percent of Dinner Consumed: 80 Mental Status Exam During interview pt is: alert and oriented, cooperative Appearance: appropriately dressed (in long robe and casual clothing), appropriately groomed Eye contact is: good Motor behavior is: steady gait & station, no abnormal motor movements Speech: other (excessive) Affect: other (stable, mildly irritable tone at times) Mood is: other ("Much better here") Thought process: goal directed, circumstantial (responding to redirection) Thought content: cognitive distortions Suicidal thought are: denied Homicidal thoughts are: denied Hallucinations: denies auditory, denies visual Cognition: language grossly intact, other (impairment in memory and attention) Intelligence estimated to be: average Insight: impaired Judgement: impaired Impression Mood and irritability continue to improve. Pt states she has not had suicidal ideation while on the unit as her significant stressors are a result of her dissatisfaction with her living conditions. Pt has been on antidepressant trials in the past with minimal response. Medical student spoke with patient's outpatient provider yesterday, who stated it would not be recommended to start antidepressants as it is believed her psychiatric condition is primarily due to her PTSD and a potential Conroe II component. It is also reported that the patient has not been compliant with therapy appointments, which was a condition for ongoing psychiatric management with her current provider. Pt is willing to decrease dose of Klonopin to 1mg qHS after discussing risk of respiratory depression, combined with current O2 use at bedtime. Her primary concerns continues to be her level of pain, but she is willing to try the decreased dose with prn Vistaril remaining. Risks, benefits, alternatives, and side effects were discussed. Pt verbalized understanding and is in agreement with the plan. Pt signed a 72-hour notice yesterday which expires on 08/17. She requires inpatient treatment due the risk of suicide if discharged. Medication adjustments are ongoing to target mood, but also decreasing risk for side effects and interactions as she has an extensive current medication list. Meetings with case management assistant and son have been scheduled. Plan (1) GOUT NOS Continue home dose of colchicine prn (2) Depression -Admitted to the behavioral health unit with 15 minute checks for safety. -Attend groups and therapy on the unit, work on healthy coping skills and a discharge safety plan. -Recommend family meeting, possibly with her case management assistant, to discuss stressors with her in-home services and explore options. -Continue home dose of clonazepam, but discontinue zolpidem, as patient states it is no longer effective and to decrease polypharmacy. -Get records from Dr. Lambert, and contact her to explore antidepressant or other medication options. -Pt states she made an appointment at [facility] and is planning to switch providers , as it is closer - 08/21. 08/14 -Phone call placed to the [facility] to discuss medication trials. The patient remains resistant to trying another antidepressant, citing her very long allergy list and history of poorly defined "bad reactions" to numerous medications. It would also be helpful to review the records to clarify diagnosis, specifically Conroe II. -Encourage the patient to be up and out of bed during the day, actively participating in treatment, attending groups and therapy. She would benefit from working on coping skills and behavioral techniques for managing her symptoms. -Schedule family meeting with blended case management assistant and food and beverage service manager. Explore ways to improve her compliance with therapy and outpatient appointments. 08/15 - Decrease Klonopin to 1mg qHS due to risk a respiratory depression, potentially increased as patient is already on bedtime O2. - Medical Student spoke with outpatient provider and documented call in patient's chart. Recommendations from Dr. 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 - Encourage compliance with outpatient therapy as this a been a barrier to treatment in the past. - Continue to encourage participation in group programming on the unit. - Meetings with case management assistant and son are scheduled. - Consider discharge after meeting with son tomorrow if she remains appropriate. (3) Fibromyalgia Initial med rec incorrect - clarified with OP med list - not currently prescribed chlorzoxazone (caused hallucinations) and states she is not currently taking Skelaxin. Hold Percocet due to concurrent benzo use and her reports of cognitive dysfunction. Continue tramadol; per PDMP last Percocet prescription was filled July 03, 2017 and was only for 8 days, and last tramadol prescription was for 10 days June 30, 2017. Continue reported home dose of Voltaren 75 mg twice daily prn. 08/14 -encouraged until movement/exercise, and to be out of bed during the day. (4) Polypharmacy Reviewed all medications and outpatient med list and prescription history. We are attempting to eliminate medications that are likely to be contributing to her current symptoms and cognitive dysfunction. Chantix discontinued as she has been taking it for a year, and patient advised that this is beyond the recommended duration of treatment, and that there is a risk it could exacerbate mood symptoms. Zolpidem discontinued as patient reports it is not effective and it she is on multiple centrally acting medications, likely contributing to her memory problems. 08/15 - Klonopin decreased to 1mg qHS. (5) Hypertension Continue home dose of furosemide and monitor blood pressure. (6) Asthma Continue home regimen of Symbicort inhaler, Tessalon Perles, fluticasone- vilanterol inhaler, albuterol inhaler, and Singulair. (7) ESOPHAGEAL REFLUX Continue home dose of Pepcid. Discharge / Aftercare Planning Primary Care Physician: Name: Dr Joya [facility] Psychiatrist: Name: Dyllan Lifearsenio Date of Appointment: Aug 21, 2017 Time of Appointment: 3:00 p.m. Appointment Notes: [address] [place] [address] Therapist: Name: Janette [facility] Date of Appointment: Aug 21, 2017 Time of Appointment: 4 p.m. Appointment Notes: [address] [place] [address] Languages And Literature Instructor: Name: ABBY Childress Date of Appointment: Aug 15, 2017 Time of Appointment: 3 p.m. Visit Code E&M Code: 99973 Inventory Assets Strengths: has service waiver and OP providers Needs: med rec, antidepressant therapy, better adherence (hasn't gone to appts in 2 mos ), psychoeducation, prioritizing her mental health Risk Factors Assessment : No /single/: Yes Higher / Fall in social status: No Health problems: Yes Mental Health Diagnoses: Yes Substance use disorders: No Previous attempt: Yes Family history of suicide: No Previous psychiatric stay: Yes Hopelessness: Yes Smoker: No Protective Factors Assessment : No Responsible for young children: No Employed: No Stable relationships: No Supportive family: No Good rapport with provider: Yes Data Vital Signs Last 24 Hrs: Date Time Temp Pulse Resp B/P (MAP) Pulse Ox O2 Delivery O2 Flow Rate FiO2 08/15/17 06:26 36.9 65 20 163/92 76 152/89 Meds Administered Last 24 Hrs: Meds Administered (Past 24Hrs) Medications (Trade) Dose Ordered Sig/Tea Route Start Time Stop Time Status Last Admin Dose Admin Lorazepam (Ativan Tab) 1 mg NOW STAT SL 08/13/17 11:16 08/13/17 11:17 DC 08/13/17 11:57 1 MG Hydroxyzine HCl (Vistaril Tab) 50 mg HSZ PRN PO 08/13/17 15:00 09/12/17 14:59 08/14/17 22:26 50 MG Budesonide/ Formoterol Fumarate (Symbicort 80/ 4.5 Inh) 2 puffs BID INH 08/13/17 21:00 09/12/17 20:59 08/14/17 22:08 2 PUFFS Cholecalciferol (Vitamin D Tab) 1,000 inter.unit BID PO 08/13/17 21:00 09/12/17 20:59 08/14/17 22:08 1,000 INTER.UNIT Clonazepam (Klonopin Tab) 1.5 mg HS PO 08/13/17 22:00 09/12/17 21:59 08/14/17 22:07 1.5 MG Famotidine (Pepcid Tab) 20 mg BID PO 08/13/17 21:00 09/12/17 20:59 08/15/17 09:36 20 MG Furosemide (Lasix Tab) 10 mg DAILY PO 08/14/17 09:00 09/13/17 08:59 08/15/17 09:36 10 MG Metaxalone (Skelaxin Tab) 800 mg BID PO 08/13/17 21:00 09/12/17 20:59 08/15/17 09:37 800 MG Ascorbic Acid (Vitamin C Tab) 500 mg QAM PO 08/14/17 09:00 09/13/17 08:59 08/15/17 09:37 500 MG Tramadol HCl (Ultram Tab) 100 mg Q4H PRN PO 08/13/17 16:45 09/12/17 16:44 08/14/17 22:26 100 MG Allopurinol (Zyloprim Tab) 300 mg DAILY@1800 PO 08/14/17 18:00 3/17/18 17:59 08/14/17 18:46 300 MG Montelukast Sodium (Singulair Tab) 10 mg DAILY@1800 PO 08/14/17 18:00 09/13/17 17:59 08/14/17 18:46 10 MG Cholecalciferol (Vitamin D Tab) 2,000 inter.unit QAM PO 08/14/17 09:00 09/13/17 08:59 08/15/17 10:17 2,000 INTER.UNIT Omeprazole (Prilosec - Substitute) 40 mg DAILY@1700 PO 08/14/17 17:00 09/13/17 16:59 08/14/17 17:11 40 MG Diclofenac Sodium (Voltaren Tab) 75 mg BID PRN PO 08/14/17 10:30 09/13/17 10:29 08/14/17 19:17 75 MG Silodosin (Rapaflo) 8 mg QPM@1800 PO 08/15/17 18:00 09/14/17 17:59 08/14/17 19:13 8 MG Levocetirizine (Xyzal) 5 mg HS PO 08/14/17 22:00 09/13/17 21:59 08/14/17 22:07 5 MG
[2017-08-15] MEDS: TRAMADOL HCL 50 MG TAB PO PRN (16:33)
[2017-08-15] MEDS: SILODOSIN 8 MG CAP PO SCH (18:00)
[2017-08-15] MEDS: MONTELUKAST SOD 10 MG TAB PO SCH (18:39)
[2017-08-15] MEDS: ALLOPURINOL 100 MG TAB PO SCH (18:40)
[2017-08-15] MEDS: DICLOFENAC SOD EC 75 MG TABCR PO PRN (18:43)
[2017-08-15] MEDS ORDERED: CLONAZEPAM 1 MG TAB PO SCH (22:00)
[2017-08-15] MEDS: LEVOCETIRIZINE 5 MG TABLET PO SCH (22:27)
[2017-08-15] MEDS: hydrOXYzine HCL 25 MG TAB PO PRN (22:32)
[2017-08-16 06:57] VITALS: BP_SYST 170; BP_SYST 172; BP_DIAS 102; BP_DIAS 96; PULSE 69; PULSE 71; TEMP 36.4
[2017-08-16] MEDS ORDERED: FUROSEMIDE 20 MG TAB PO SCH (09:00)
[2017-08-16] MEDS: BUDESONIDE/FORMOTEROL FUMARATE 80/4.5 60 PUFFS/INHALER INH SCH (09:50)
[2017-08-16] MEDS: FAMOTIDINE 20 MG TAB PO SCH (09:52)
[2017-08-16] MEDS: FUROSEMIDE 20 MG TAB PO SCH (09:52)
[2017-08-16] MEDS: METAXALONE 800 MG TAB PO SCH (09:53)
[2017-08-16] MEDS: ASCORBIC ACID 500 MG TAB PO SCH (09:53)
[2017-08-16] MEDS: CHOLECALCIFEROL 1000 INTER.UNIT TAB PO SCH ×2 (09:53→09:54)
[2017-08-16] MEDS: DICLOFENAC SOD EC 75 MG TABCR PO PRN (10:00)
[2017-08-16] MEDS ORDERED: KLN1 PO (12:08)
[2017-08-16] MEDS ORDERED: ATR25 PO (12:08)
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
== END 2017-08-16 14:45 | disposition home or self-care (01) | DRG 881 ==
LOC: C.EDB 10:57 → C.MHU 15:04 → ENRESERV 15:31 → C.MHU 17:31
PROVIDERS: ADMIT Psychiatry & Neurology Psychiatry; ATTEND Psychiatry & Neurology Psychiatry
DX: F32.9 Major depressive disorder, single episode, unspecified (principal); R45.851 Suicidal ideations; F43.10 Post-traumatic stress disorder, unspecified; J45.909 Unspecified asthma, uncomplicated; I10 Essential (primary) hypertension; K21.9 Gastro-esophageal reflux disease without esophagitis; M10.9 Gout, unspecified; M48.061 Spinal stenosis, lumbar region without neurogenic claudication; J43.9 Emphysema, unspecified; M79.7 Fibromyalgia; M81.0 Age-related osteoporosis without current pathological fracture; F17.200 Nicotine dependence, unspecified, uncomplicated; Z79.899 Other long term (current) drug therapy; Z79.52 Long term (current) use of systemic steroids; Z91.410 Personal history of adult physical and sexual abuse; Z62.810 Personal history of physical and sexual abuse in childhood; Z85.3 Personal history of malignant neoplasm of breast; Z85.028 Personal history of other malignant neoplasm of stomach; Z85.831 Personal history of malignant neoplasm of soft tissue; Z88.8 Allergy status to other drugs, medicaments and biological substances; Z88.1 Allergy status to other antibiotic agents; Z88.0 Allergy status to penicillin; Z88.5 Allergy status to narcotic agent; Z88.6 Allergy status to analgesic agent; Z88.3 Allergy status to other anti-infective agents; Z88.7 Allergy status to serum and vaccine; Z88.2 Allergy status to sulfonamides; Z91.02 Food additives allergy status; Z83.3 Family history of diabetes mellitus; Z82.49 Family history of ischemic heart disease and other diseases of the circulatory system; Z84.1 Family history of disorders of kidney and ureter; Z82.5 Family history of asthma and other chronic lower respiratory diseases

== ENCOUNTER → 2017-10-14 | Outpatient (CLI) | payer OTHER ==
[~2017-10-14] MED LIST changes: +ATR25 PO; -BENZ100C7 PO; +BENZ1CAP90 PO; -CHLO1TAB70 PO; +CHOL1TAB53 PO; -CHOL2000 PO; +CHOL200027 PO; -CLON1TAB3 PO; +COLC1TAB25 PO; +DICL-201 PO; +DICY10CA55 PO; -FLAX1CAP11 PO; +KLN1 PO; -MELATAB2 PO; +OPTIRAY 320 IV PRN; -OXYC-57 PO; +SYMIN/8045 INH; +TRMO115 TOP; -ZOLP10TA PO
--- NOTE | 2017-10-14 17:34 | DIAGNOSTIC IMAGING REPORT ---
CT OF THE CHEST WITH IV CONTRAST CLINICAL HISTORY: Pneumonia. Abnormal chest CT. Follow-up examination. History of gastric carcinoma. COMPARISON STUDY: July 10, 2017 TECHNIQUE: Following the IV administration of 74 mL of Optiray-320, CT of the thorax was performed from the thoracic inlet to the lung bases. Images are reviewed in the axial, sagittal, and coronal planes. IV contrast was administered without complication. A dose lowering technique was utilized adhering to the principles of ALARA. CT DOSE: 223.49 mGycm FINDINGS: Thyroid: Slight hypodensity of the lower pole the left lobe, likely is secondary to beam hardening artifact Thoracic aorta: The thoracic aorta is normal in course and caliber, noting standard 3-vessel arch anatomy. No aneurysm or dissection is seen. Pulmonary vasculature: The pulmonary trunk is normal in caliber. There are no central filling defects identified to suggest pulmonary embolus. Note that this examination was not protocoled for the evaluation of pulmonary emboli. HEART: The heart is normal in size and configuration, without pericardial effusion. Lungs and pleural spaces: There is pulmonary emphysema. There is scattered areas of minor scarring. There is no focal pulmonary consolidation. There is been interval resolution in the previous identified lower lobe tree-in-bud nodularity. Mediastinum: There is no mediastinal lymphadenopathy. Cindy: Clear. Axilla: Clear. Upper abdomen: There is mild hepatic steatosis Skeletal structures: There are no lytic or blastic osseous lesions. IMPRESSION: 1. Pulmonary emphysema 2. No evidence of pathologic adenopathy 3. No evidence of focal pulmonary consolidation. 4. Interval resolution of the lower lobe tree-in-bud nodularity 5. Scattered areas of atelectasis/scarring Electronically signed by: Fortunato Gómez M.D. 10/14/2017 5:33 PM Dictated Date/Time: 10/14/2017 5:27 PM
== END | disposition home or self-care (01) ==
LOC: C.CTS 16:12
PROVIDERS: ATTEND Family Medicine
DX: J45.909 Unspecified asthma, uncomplicated (principal); J30.9 Allergic rhinitis, unspecified; C49.A4 Gastrointestinal stromal tumor of large intestine

== ENCOUNTER → 2017-11-12 | Outpatient (CLI) | payer OTHER ==
[~2017-11-12] MED LIST changes: -OPTIRAY 320 IV PRN
[2017-11-12 18:03] LABS: INFLUENZA B ANTIGEN Neg for Influ B (NEG)
== END | disposition home or self-care (01) ==
LOC: C.LAB1850 16:31
PROVIDERS: ATTEND Internal Medicine Critical Care Medicine
DX: J31.0 Chronic rhinitis (principal)